=== PATIENT | female | born 1990 | race Caucasian/White ===

== ENCOUNTER 2019-07-06 10:52 | Outpatient (CLI) | payer OTHER, SELFPAY ==
--- NOTE | ~2019-07-06 | US_ITS ---
EXAMINATION: US OB /maternal detail DATE: 07/06/2019 12:25 INDICATION: Second trimester anatomic survey, follow-up subchorionic hematoma TECHNIQUE: Real-time ultrasound of the pelvis was performed. COMPARISON: 06/03/2019 FINDINGS: There is a single living fetus in variable presentation. The placenta is anterior. heart rate i s 159 beats per minute (bpm). cardiac activity and movement are noted. The amniotic flui d index is subjectively normal. A 2.1 x 2.4 x 1.1 cm hypoechoic area is again seen in the placenta wh ich is slightly decreased in size since the prior examination. The following anatomy was identified as normal: 4 chamber heart 3 vessel cord cord insertion kidneys urinary bladder stomach spine diaphragm ventricles cisterna magna cerebellum The following biometric data were obtained: Biparietal diameter (BPD): 4.7 cm; head circumference (HC): 16.9 cm; abdominal circumference (AC): 15 .2 cm; femur length (FL): 2.9 cm. These measurements are concordant. Estimated weight is 311 g +/- 46 g, which correlates with the 39th percentile when 11/24/2019 is used as estimated date of delivery. As single measurements, these parameters are each equal to the following estimated gestational ages w ith ranges of +/- 2 standard deviations: BPD: 20 weeks 1 days +/- 1 weeks 5 days. HC: 19 weeks 4 days +/- 1 weeks 3 days. AC: 20 weeks 3 days +/- 2 weeks 0 days. FL: 18 weeks 6 days +/- 1 weeks 6 days. estimated gestational age based solely on measurements from this exam is 19 weeks 5 days +/- 1 weeks 3 days. IMPRESSION: 1. Single living fetus in variable presentation. 2. Estimated weight is 311 g +/- 46 g, which correlates with the 39th percentile when 11/24/2019 is used as estimated date of delivery. 3. Small hypoechoic area of the placenta with decrease in size, possibly small hemorrhage. Reviewed, dictated and finalized at location A. E VISITOR IMPRESSION: 1. Single living fetus in variable presentation. 2. Estimated weight is 311 g +/- 46 g, which correlates with the 39th per centile when 11/24/2019 is used as estimated date of delivery. 3. Small hypoechoic area of the placenta with decrease in size, possibly small hemorrhage.
== END 2019-07-06 10:53 | disposition home or self-care (01) ==
LOC: ANHIMG 10:54
PROVIDERS: Visit Provider Obstetrics & Gynecology
DX: Z36.9 Encounter for antenatal screening, unspecified (principal); Z3A.19 19 weeks gestation of pregnancy
CPT/HCPCS: 76805

== ENCOUNTER 2019-07-24 07:52 | Outpatient (CLI) | payer OTHER, SELFPAY ==
--- NOTE | ~2019-07-24 | US_ITS ---
EXAMINATION: US OB follow up DATE: 07/24/2019 08:48 INDICATION: Follow-up subchorionic hematoma. TECHNIQUE: Real-time transabdominal obstetric ultrasound. FINDINGS: Comparison to multiple prior studies sequentially, with oldest reviewed study dated 2018. There is a single living fetus in vertex presentation. The placenta is anterior without placenta pre via. cardiac activity and movement is noted with a heart rate of 155 beats per minute. T he amniotic fluid volume is subjectively normal. Persistent small subchorionic hemorrhage measuring 1 .8 x 1.3 x 1.2 cm. The following biometric data were obtained: BPD: 55mm corresponds to gestational age 22 weeks 5 days. Head circumference: 203mm corresponds to gestational age 22 weeks 3 days. Abdominal circumference: 186mm corresponds to gestational age 23 weeks 3 days. Femur length: 35mm corresponds to gestational age 21 weeks 1 days. Estimated weight: 500grams +/- 75grams.] IMPRESSION: 1. Single living intrauterine fetus in vertex presentation with an estimated gestational age of 22 w eeks 3 days by inititial ultrasound. Appropriate interval growth. 2. Normal placenta. 3: Persistent small subchorionic hemorrhage. Reviewed, dictated and finalized at location B. H PROFESSIONAL [employer]THLETES IMPRESSION: 1. Single living intrauterine fetus in vertex presentation with an estimated g estational age of 22 weeks 3 days by inititial ultrasound. Appropriate interva l growth. 2. Normal placenta. 3: Persistent small subchorionic hemorrhage.
== END 2019-07-24 07:53 | disposition home or self-care (01) ==
LOC: ANHIMG 07:53
PROVIDERS: Visit Provider Obstetrics & Gynecology
DX: O36.8920 Maternal care for other specified fetal problems, second trimester, not applicable or unspecified (principal); Z3A.00 Weeks of gestation of pregnancy not specified
CPT/HCPCS: 76816

== ENCOUNTER 2019-08-18 08:38 | Outpatient (CLI) | payer OTHER, SELFPAY ==
--- NOTE | ~2019-08-18 | US_ITS ---
EXAMINATION: US OB follow up DATE: 08/18/2019 09:05 INDICATION: Subchorionic hematoma follow-up, second trimester TECHNIQUE: Real-time ultrasound of the pelvis was performed. The interpreting radiologist was not pre sent for the study. COMPARISON: 07/24/2019 FINDINGS: There is a single living fetus in vertex presentation. No persistent subchorionic hematoma is identified. The placenta is anterior. cardiac activity and movement are noted. h eart rate is 157 beats per minute (bpm). The amniotic fluid index is subjectively normal. The following biometric data were obtained: Biparietal diameter (BPD): 6.8 cm; head circumference (HC): 24.4 cm; abdominal circumference (AC): 22 .9 cm; femur length (FL): 4.6 cm. The femoral length to biparietal diameter ratio is greater than two standard deviations below the isidoro n. These measurements are otherwise concordant. Estimated weight is 958 g +/- 143 g, which correlates with the 65th percentile when 11/24/2019 is used as estimated date of delivery. As single measurements, these parameters are each equal to the following estimated gestational ages w ith ranges of +/- 2 standard deviations: BPD: 27 weeks 4 days +/- 2 weeks 1 days. HC: 26 weeks 4 days +/- 2 weeks 0 days. AC: 27 weeks 2 days +/- 2 weeks 1 days. FL: 25 weeks 3 days +/- 2 weeks 1 days. estimated gestational age based solely on measurements from this exam is 26 weeks 5 days +/- 1 weeks 6 days. IMPRESSION: 1. Single living fetus in vertex presentation. 2. No persistent subchorionic hematoma identified. 3. Femoral length to biparietal diameter ratio greater than two standard deviations below the mean. 4. Estimated weight is 958 g +/- 143 g, which correlates with the 65th percentile when 11/24/2019 is used as estimated date of delivery. Reviewed, dictated and finalized at location B. IMPRESSION: 1. Single living fetus in vertex presentation. 2. No persistent subchorionic hematoma identified. 3. Femoral length to biparietal diameter ratio greater than two standard deviat ions below the mean. 4. Estimated weight is 958 g +/- 143 g, which correlates with the 65th rcentile when 11/24/2019 is used as estimated date of delivery.
== END 2019-08-18 08:39 | disposition home or self-care (01) ==
LOC: ANHIMG 08:42
PROVIDERS: PCP Family Medicine; Visit Provider Obstetrics & Gynecology
DX: O36.8920 Maternal care for other specified fetal problems, second trimester, not applicable or unspecified (principal); Z3A.26 26 weeks gestation of pregnancy
CPT/HCPCS: 76816

== ENCOUNTER 2019-09-18 13:45 | Outpatient (CLI) | payer OTHER, SELFPAY ==
--- NOTE | ~2019-09-18 | US_ITS ---
EXAMINATION: US OB follow up DATE: 09/18/2019 14:40 INDICATION: Size greater than dates. Third trimester. TECHNIQUE: Real-time ultrasound of the pelvis was performed. COMPARISON: Ultrasound 08/18/2019, 04/03/2019 FINDINGS: There is a single living fetus in transverse lie. The placenta is anterior. heart rate is 150 beats per minute (bpm). The amniotic fluid volume is subjectively normal. The following biometric data were obtained: Biparietal diameter (BPD): 7.9 cm; head circumference (HC): 28.6 cm; abdominal circumference (AC): 26 .2 cm; femur length (FL): 5.8 cm. These measurements are concordant. Estimated weight is 1599 g +/- 240 g, which correlates with 42nd percentile when 11/24/19 is used as estimated date of delivery. As single measurements, these parameters are each equal to the following estimated gestational ages: BPD: 31 weeks 6 days. HC: 31 weeks 3 days. AC: 30 weeks 2 days. FL: 30 weeks 3 days. estimated gestational age based solely on measurements from this exam is 31 weeks 0 days +/- 2 weeks 1 days. IMPRESSION: 1. Single living fetus in transverse lie. 2. Estimated weight is 1599 g +/- 240 g, which correlates with 42nd percentile when 11/24/19 is used as estimated date of delivery. This date was set by ultrasound on 04/03/19. Reviewed, dictated and finalized at location A. IMPRESSION: 1. Single living fetus in transverse lie. 2. Estimated weight is 1599 g +/- 240 g, which correlates with 42nd perc entile when 11/24/19 is used as estimated date of delivery. This date was set by ultrasound on 04/03/19.
== END 2019-09-18 13:46 | disposition home or self-care (01) ==
PROVIDERS: Visit Provider Nurse Practitioner
DX: O36.63X0 Maternal care for excessive fetal growth, third trimester, not applicable or unspecified (principal)
CPT/HCPCS: 76816

== ENCOUNTER 2019-11-06 13:23 | Inpatient (IN) | payer OTHER, SELFPAY ==
[2019-11-06] VITALS (9 sets, daily range): BP systolic 116–141; BP diastolic 77–93; PULSE 67–124; TEMP 37.6; BMI 30.2
[2019-11-06 18:05] LABS: Basophils Absolute Auto 0.1 K/mm3 (0.0-0.1); Basophils Percent Auto 0.4 % (0.2-1.2); Eosinophils Absolute Auto 0.1 K/mm3 (0-0.3); Eosinophils Percent Auto 0.3 % (0-4.4); Hematocrit 40.4 % (37.0-47.0); Immature Granulocyte Percent A 0.6 % (0-0.5); Lymphocytes Absolute Auto 1.98 K/mm3 (0.9-3.2); Lymphocytes Percent Auto 12.7 % (18.3-44.2); Mean Corpuscular HGB Conc 34.7 g/dl (32-36); Mean Corpuscular Hemoglobin 30.2 pg (26-34); Mean Corpuscular Volume 87.1 fl (80-100); Mean Platelet Volume 10.8 fl (7.4-10.4); Monocytes Absolute Auto 0.8 K/mm3 (0.1-0.6); Monocytes Percent Auto 5.4 % (2.6-8.5); Neutrophils Absolute Auto 12.5 K/mm3 (1.3-6.7); Neutrophils Percent Auto 80.6 % (45.5-73.1); Platelet Count Result 203 k/mm3 (150-375); Red Blood Count 4.64 M/mm3 (4.2-5.4); White Blood Count 15.6 K/mm3 (4.5-10.0)
--- NOTE | 2019-11-06 18:12 | LDADM ---
This patient, Dina Real, was admitted to Labor/Delivery/Recovery 107 on 11/06/19 at 13:23. Plans for labor, pain management and were discussed with patient. Patient/family oriented to hospital policies and general routines including ID bracelet, bed and alarms, visiting hours, pain management, procedures, bathroom and other care routines, personal items, smoking policy, room service/diet and guest tray routines, infant security routines, and visiting hours. Patient/Family are encouraged to report perceived risks to care and to ask questions if they do not understand what they are told or what they should do. See OBIX for further documentation.
[2019-11-06 18:17] LABS: Alanine Aminotransferase 21 U/L (4-35); Albumin Level 3.9 g/dL (3.5-5.1); Alkaline Phosphatase 185 U/L (38-126); Aspartate Amino Transferase 33 U/L (14-36); Bilirubin,Total 0.5 mg/dL (0.2-1.3); Blood Urea Nitrogen 11 mg/dL (7-17); Calcium 8.9 mg/dL (8.4-10.2); Carbon Dioxide 21 mmol/L (22-30); Chloride 105 mmol/L (98-107); Estimated Glomerular Filt Rate > 60; Glucose 85 mg/dL (65-105); Potassium 3.8 mmol/L (3.4-5.0); Sodium 133 mmol/L (137-145)
[2019-11-06 18:18] LABS: Uric Acid 3.9 mg/dL (2.5-7.5)
[2019-11-06] MEDS: OXYTOCIN 30 UNITS/NS 500 ML 30 UNITS/500 ML BAG 999 UNITS IV CONT (22:50)
--- NOTE | 2019-11-06 23:07 | PM.OBDSVD ---
DS: Admitting Diagnosis Admitting Diagnosis Admitting Diagnosis: OB - DS: Summary OB Procedures : Ultrasound OB Procedures Intrapartum: Spontaneous Vag Delivery OB Procedures: : None Time Spent with Patient Time attestation: Total time spent providing and/or coordinating discharge services: DS: Data Data Completed and Pending Labs on day of discharge: Labs from last 24 hours 11/06/19 11/06/19 11/06/19 17:59 17:59 17:59 WBC RBC Hgb Hct MCV MCH MCHC RDW Plt Count MPV Immature Gran % (Auto) Neut % (Auto) Lymph % (Auto) [place] % (Auto) Eos % (Auto) Baso % (Auto) Lymph # (Auto) [place] # (Auto) Eos # (Auto) Baso # (Auto) Abs Immat Gran (auto) Absolute Neuts (auto) Absolute Nucleated RBC Nucleated RBC % Sodium 133 L Potassium 3.8 Chloride 105 Carbon Dioxide 21 L BUN 11 Creatinine 0.70 Estim Creat Clear Calc Not Reportable Estimated GFR > 60 Glucose 85 Uric Acid Calcium 8.9 Total Bilirubin 0.5 AST 33 ALT 21 Alkaline Phosphatase 185 H Total Protein 7.0 Albumin 3.9 RPR Pending Blood Type O Positive Antibody Screen Negative 11/06/19 11/06/19 17:59 17:59 WBC 15.6 H RBC 4.64 Hgb 14.0 Hct 40.4 MCV 87.1 MCH 30.2 MCHC 34.7 RDW 13.0 Plt Count 203 MPV 10.8 H Immature Gran % (Auto) 0.6 H Neut % (Auto) 80.6 H Lymph % (Auto) 12.7 L [place] % (Auto) 5.4 Eos % (Auto) 0.3 Baso % (Auto) 0.4 Lymph # (Auto) 1.98 [place] # (Auto) 0.8 H Eos # (Auto) 0.1 Baso # (Auto) 0.1 Abs Immat Gran (auto) 0.10 H Absolute Neuts (auto) 12.5 H Absolute Nucleated RBC 0.0 Nucleated RBC % 0.0 Sodium Potassium Chloride Carbon Dioxide BUN Creatinine Estim Creat Clear Calc Estimated GFR Glucose Uric Acid 3.9 Calcium Total Bilirubin AST ALT Alkaline Phosphatase Total Protein Albumin RPR Blood Type Antibody Screen Discharge Plan Discharge Attending physician on discharge: Desean Toth Discharging Clinician: Desean Toth Patient Disposition: Home, Self-Care Activity: may shower Diet: regular Discharge Instructions: Education: Mom and Baby Guide Given to: Mother Follow-Up: Call your delivering provider's office for an appointment to be seen in: 6 Weeks Mom and baby should come to the [facility] for the follow-up appointment. Appointment Date/Time: November 09, 2019 at 11:00 am What to expect at your follow-up visit: Blood Pressure Check Physical Assessment Call [phone] if you are unable to keep your appointment time. BREAST CARE: 1. Wear a snug supportive bra. 2. For engorgement discomfort: Breast Feeding: A. Apply warm moist washcloths B. Express milk as needed to relieve engorgement C. Wear loose clothing Bottle Feeding: A. May apply ice packs 3. For sore nipples: A. Identify correct latch-on B. Apply warm moist washcloths before and after nursing C. Air dry nipples after nursing D. May apply Lansinoh cream to nipples EPISIOTOMY/PERINEAL CARE: 1. Until bleeding stops, use your stefan bottle after urinating 2. Change your pad frequently throughout the day 3. You may take sitz baths several times a day (fill your bathtub with warm water and soak for 20 minutes.) Do NOT bathe in the water 4. No tub baths until seen by your physician - You may shower ACTIVITY: 1. Rest as much as possible. 2. Do not exercise or lift anything heavier than your baby (such as laundry or other children.) 3. Avoid stairs or driving as much as possible. 4. Do not put anything into the vagina. No douching, tampons, or sexual activity until seen by physician. NOTIFY PHYSICIAN IF YOU HAVE ANY QUESTIONS OR IF ANY OF THE FOLLOWING SYMPTOMS OCCUR: 1. I
--- NOTE | 2019-11-06 23:07 | WPDOBADMIT ---
Obstetrics - Admit Note Admission Note: Complete and pushing. record reviewed. No pertinent additions to the history and/or any subsequent changes in the physical findings that are not consistent with the expected course of the were found. Additions to the history and/or subsequent changes in the physical findings follow. None.
--- NOTE | 2019-11-06 23:08 | P.PCNOB_ITS ---
OB - Delivery Note Procedure Delivery date: 11/06/19 Procedure: Intrapartal events: None Induction method: none Delivery monitor: external FHT and external uterine Route of delivery: Laceration description: Vaginal - 2nd Degree Delivery repair: vicryl Specimen: Yes Estimated blood loss (mL): 300 Anesthesia type: Local Disposition: floor [place] Baby Date of : 11/06/19 Time of : 22:11 Weeks of gestation at delivery: 39 gender: Male Weight (pounds): 5 Weight (ounces): 15 presentation: vertex Placenta delivery description: Manual Removal cord vessel description: 3 Vessels score one minute: 8 score five minutes: 8 Narrative: Short umbilical cord. Placenta manually removed after 34 minutes of retraction bedside ultrasound done after removal stripe visualized Cytotec 800 mcg given rectal.
[2019-11-06] MEDS: OXYTOCIN 30 UNITS/NS 500 ML 30 UNITS/500 ML BAG 125 UNITS IV CONT (23:19)
[2019-11-06] MEDS: ceFAZolin 2 GM/D5W 50 ML 2 GM/50 ML BAG IVPB (23:55)
[2019-11-07] VITALS (8 sets, daily range): BP systolic 108–130; BP diastolic 68–82; PULSE 53–128; RESP 16–18; TEMP 36.6–37.1; O2SAT 96–99
[2019-11-07] MEDS: WITCH HAZEL 40 PADS 1 PAD TOPICAL ×2 (01:16→16:18)
[2019-11-07] MEDS: BENZOCAINE 20% AER SPR (*SP) 56 GM CAN 1 SPRAY TOPICAL ×2 (01:17→16:18)
--- NOTE | 2019-11-07 01:58 | PC.NURSE ---
This patient, Dina Real, was received from Labor& Delivery on 11/07/19 at 0154. Personal belongings list checked and signed. Patient/family oriented to unit policies and routines
[2019-11-07 05:12] LABS: Hemoglobin 11.8 g/dL (12.0-15.0)
--- NOTE | 2019-11-07 07:51 | P.PNOB_ITS ---
OB - PN: Subj Subjective Date/time seen: 11/07/19 07:51 Patient comments: no complaints baby status: doing well OB - PN: Obj Data Labs CBC & Chem 7: 11/07/19 03:44 11/06/19 17:59 Labs: Laboratory Results - last 24 hr 11/06/19 11/06/19 11/06/19 17:59 17:59 17:59 WBC 15.6 H RBC 4.64 Hgb 14.0 Hct 40.4 MCV 87.1 MCH 30.2 MCHC 34.7 RDW 13.0 Plt Count 203 MPV 10.8 H Immature Gran % (Auto) 0.6 H Neut % (Auto) 80.6 H Lymph % (Auto) 12.7 L [place] % (Auto) 5.4 Eos % (Auto) 0.3 Baso % (Auto) 0.4 Lymph # (Auto) 1.98 [place] # (Auto) 0.8 H Eos # (Auto) 0.1 Baso # (Auto) 0.1 Abs Immat Gran (auto) 0.10 H Absolute Neuts (auto) 12.5 H Absolute Nucleated RBC 0.0 Nucleated RBC % 0.0 Sodium Potassium Chloride Carbon Dioxide BUN Creatinine Estim Creat Clear Calc Estimated GFR Glucose Uric Acid 3.9 Calcium Total Bilirubin AST ALT Alkaline Phosphatase Total Protein Albumin Blood Type O Positive Antibody Screen Negative 11/06/19 11/07/19 17:59 03:44 WBC RBC Hgb 11.8 L Hct 34.0 L MCV MCH MCHC RDW Plt Count MPV Immature Gran % (Auto) Neut % (Auto) Lymph % (Auto) [place] % (Auto) Eos % (Auto) Baso % (Auto) Lymph # (Auto) [place] # (Auto) Eos # (Auto) Baso # (Auto) Abs Immat Gran (auto) Absolute Neuts (auto) Absolute Nucleated RBC Nucleated RBC % Sodium 133 L Potassium 3.8 Chloride 105 Carbon Dioxide 21 L BUN 11 Creatinine 0.70 Estim Creat Clear Calc Not Reportable Estimated GFR > 60 Glucose 85 Uric Acid Calcium 8.9 Total Bilirubin 0.5 AST 33 ALT 21 Alkaline Phosphatase 185 H Total Protein 7.0 Albumin 3.9 Blood Type Antibody Screen OB - PN A/P Plan day: 1 Plan: routine care Time Spent With Patient Time: Total time spent is greater than 50% in coordination of care (as documented) at patient's floor/unit and/or counseling patient: Exam : Bimanual exam- vagina & uterus: other (Uterus firm, nt @U)
[2019-11-07] MEDS: IBUPROFEN 600 MG TABLET PO ×2 (08:14→16:18)
[2019-11-07] MEDS: MULTIVIT/MIN/PREN/FOL AC/IRON TABLET 1 TAB PO (08:14)
[2019-11-07] MEDS: DOCUSATE SODIUM 100 MG CAPSULE PO ×2 (08:14→16:19)
[2019-11-07] MEDS: LANOLIN (LANSINOH) 7.5 GM CREAM 1 APPLIC TOPICAL (08:15)
[2019-11-07 08:54] LABS: Rapid Plasma Reagin Non-Reactive (NonReactive)
--- NOTE | 2019-11-07 11:00 | PC.NURSE ---
Consulted with patient, mother reports infant has been sleepy. will make eager attempts to latch with a few flutter sucks with long pausing and fall asleep this feeding. Infant has latched and eagerly fed a few feedings. Mother has pumped and given EBM once since . Discussed and the near term , with possible sleepiness, inconsistent feeding patterns and short durations. Infant was circumcised earlier this a.m. Mother has initiated pumping and has EBM available. Reviewed infant feeding cues, frequencies, duration of feedings, feeding elimination flow sheet, and signs of adequate intake. Demonstrated stimulation techniques to wake infant for feeding. Assisted with to breast. Reviewed positioning/alignment in cross cradle, holding breast in U hold and guided asymmetrical latch on. Discussed rational for each. Infant was able to latch correctly. Infant eagerly latched with a short burst of suckling followed with long pausing. is awake and licking with attempts to organize and suck. Several attempts made in 10-15 minutes, repeating above. Reviewed signs of a correct latch, effective nursing and suck swallow ratio. Infant was able to maintain latch with no suckling and no discomfort to mother. Nipple care reviewed. Parents report this has been 's feeding pattern since . Mother states he may have had a few minutes of suckling at some feedings. Parents will supplement the 10mls EBM for this feeding.
[2019-11-07] MEDS: ACETAMINOPHEN 325 MG TABLET 650 MG PO ×2 (12:24→22:39)
--- NOTE | 2019-11-07 14:00 | PC.NURSE ---
Mother called out for assist with feeding. Demonstrated stimulation techniques to wake for feeding. Assisted with to breast. Reviewed positioning/alignment, holding breast and asymmetrical latch on. Infant was sleepy and made not effort to latch. Suggested skin to skin for 30 min., call out if infant rooting before.
--- NOTE | 2019-11-07 14:35 | PC.NURSE ---
Assisted with infant to breast. Reviewed positioning/alignment in cross cradle, holding breast and asymmetrical latch on. Infant was able to latch correctly. Infant nursed would make eager attempts to latch with a few weak suckles long pausing and would fall asleep. Mother repeated to latch several times within the 10 minutes of observation. Mother will supplement EBM and pump.
--- NOTE | 2019-11-07 15:00 | PC.NURSE ---
Assisted mother with her breastpump from home. Instructions given on breast pump care and usage, pumping schedule, nipple care, and collection and storage of breast milk. Assessed patient for correct flange size, placement and draw. Patient verbalizes and demonstrates understanding of instructions.
[2019-11-08] MEDS: DOCUSATE SODIUM 100 MG CAPSULE PO (08:09)
[2019-11-08] MEDS: IBUPROFEN 600 MG TABLET PO (08:09)
[2019-11-08] MEDS: MULTIVIT/MIN/PREN/FOL AC/IRON TABLET 1 TAB PO (08:09)
[2019-11-08 08:15] VITALS: PULSE 63; RESP 16; O2SAT 98
[2019-11-08 08:17] VITALS: BP 119/53; PULSE 56; RESP 18; TEMP 36.6
--- NOTE | 2019-11-08 08:21 | PC.NURSE ---
Patient viewed the discharge video Mother & Baby Care, The First Two Weeks . Patient was given the opportunity and encouraged to ask questions. Patient verbalized understanding of information shared and has been given the mother/baby guide for home reference.
--- NOTE | 2019-11-08 09:10 | PC.NURSE ---
Mother is able to independently latch with appropriate positioning/alignment. She denies any nipple discomfort, is feeding as required and waking infant to feed if needed. Infant is inconsistent with latching and nursing. Mother will supplement and pump each feeding/attempt. has had a few effective feedings since . is more awake and making good attempts with latching each feeding, nursing for short bursts. Discussed signs is ready for increased intake and reviewed signs when infant is ready to discontinue supplementation. Advised mother to continue to supplement until seen by her ICP. Mother is feeding as required and waking to feed if needed. is currently meeting outcomes for weight, output, jaundice and feeding frequencies. Mother states she feels confident to continue effective at home. Reviewed transition to breast milk, signs of adequate intake, and engorgement/relief. Instructed to call ICP if intake/output less than required. Reviewed regular medications mother is taking. Information provided per Estela. Reviewed community resources on the [facility] website and in the Mom/Baby guide. Information on outpatient services provided. Mother has no further questions at this time.
--- NOTE | 2019-11-08 13:17 | PC.NURSE ---
Self care and infant care discharge instructions given including follow up visit date and time. Pt. verbalized understanding. No questions or concerns voiced. Very pleasant and cooperative. FOB at side.
[2019-11-09 12:02] VITALS: BP 119/69; PULSE 67; RESP 22; TEMP 37.3
== END 2019-11-08 14:30 | disposition home or self-care (01) | DRG 807 ==
LOC: ANHLDR 18:49 → ANHOB2 11-07 02:06
PROVIDERS: Admitting Provider Obstetrics & Gynecology; Visit Provider Obstetrics & Gynecology
DX: O36.8330 Maternal care for abnormalities of the fetal heart rate or rhythm, third trimester, not applicable or unspecified (principal); Z37.0 Single live birth; Z3A.37 37 weeks gestation of pregnancy; O70.1 Second degree perineal laceration during delivery
CPT/HCPCS: 36415; 80053; 84550; 85014; 85018; 85025; 86592; 86850; 86900; 86901; 88307; A9270; J0690; J2590

== ENCOUNTER → 2021-06-10 13:21 | Outpatient (REF) | payer OTHER, SELFPAY | LOC: ANHLAB 13:21 | PROVIDERS: Visit Provider Nurse Practitioner | DX: R22.9 Localized swelling, mass and lump, unspecified (principal) | CPT/HCPCS: 88305 ==

== ENCOUNTER 2022-04-15 15:53 | Outpatient (CLI) | payer OTHER, SELFPAY | END 2022-04-15 15:54 | disposition home or self-care (01) | PROVIDERS: Visit Provider Obstetrics & Gynecology | DX: O20.0 Threatened abortion (principal) | CPT/HCPCS: 36415; 84702 ==

== ENCOUNTER 2022-04-17 10:54 | Outpatient (CLI) | payer OTHER, SELFPAY | END 2022-04-17 10:55 | disposition home or self-care (01) | LOC: ANHLAB 10:56 | PROVIDERS: Visit Provider Obstetrics & Gynecology | DX: O20.0 Threatened abortion (principal) | CPT/HCPCS: 36415; 84702 ==

== ENCOUNTER 2022-06-25 09:48 | Outpatient (CLI) | payer OTHER, SELFPAY ==
--- NOTE | ~2022-06-25 | US_ITS ---
Duplex Sonography of the left extremity: Indication: Pain Findings: Sagittal and transverse B-mode images as well as color-flow imaging were performed on the l eft femoral and popliteal veins. B-mode examination was done without and with compression in the tra nsverse plane. There is good visualization of the common femoral, proximal profunda femoral, superfi cial femoral, greater saphenous, and popliteal veins. Normal flow was seen on color-flow imaging. No rmal compressibility was demonstrated. Left posterior tibial and peroneal veins are also patent. Impression: No evidence of deep vein thrombosis involving the left lower extremity. Reviewed, dictated and finalized at location M. G[employer] SOFTWARE Impression: No evidence of deep vein thrombosis involving the left lower extremity.
== END 2022-06-25 09:49 | disposition home or self-care (01) ==
PROVIDERS: PCP Family Medicine; Visit Provider Obstetrics & Gynecology
DX: Z34.90 Encounter for supervision of normal pregnancy, unspecified, unspecified trimester (principal); Z3A.00 Weeks of gestation of pregnancy not specified; M79.605 Pain in left leg
CPT/HCPCS: 93971

== ENCOUNTER 2022-11-18 21:00 | Inpatient (IN) | payer OTHER, SELFPAY ==
[2022-11-18] VITALS (34 sets, daily range): BP systolic 125–165; BP diastolic 76–111; PULSE 25–181; RESP 16–20; TEMP 36.6; O2SAT 67–100; BMI 32.2
[2022-11-18 21:20] LABS: Basophils Absolute Auto 0.1 K/mm3 (0.0-0.1); Basophils Percent Auto 0.6 % (0.2-1.2); Eosinophils Percent Auto 0.3 % (0-4.4); Hematocrit 39.1 % (37.0-47.0); Hemoglobin 13.7 g/dL (12.0-15.0); Immature Granulocyte Absolute 0.08 K/mm3 (0.00-0.031); Immature Granulocyte Percent A 0.7 % (0-0.5); Lymphocytes Absolute Auto 3.75 K/mm3 (0.9-3.2); Mean Corpuscular Hemoglobin 30.2 pg (26-34); Mean Corpuscular Volume 86.1 fl (80-100); Mean Platelet Volume 12.4 fl (7.4-10.4); Monocytes Absolute Auto 0.8 K/mm3 (0.1-0.6); Monocytes Percent Auto 6.4 % (2.6-8.5); Neutrophils Absolute Auto 7.4 K/mm3 (1.3-6.7); Platelet Count Result 165 k/mm3 (150-375); Red Blood Count 4.54 M/mm3 (4.2-5.4); Red Cell Distribution Width 12.4 % (11.5-14.5); White Blood Count 12.1 K/mm3 (4.5-10.0)
[2022-11-18] MEDS: LACTATED RINGERS 1,000 ML 125 ML IV CONT (21:20)
--- NOTE | 2022-11-18 21:24 | LDADM ---
This patient, Dina Real, was admitted to Labor/Delivery/Recovery 106 on 11/18/22 at 21:00. Plans for labor, pain management and were discussed with patient. Patient/family oriented to hospital policies and general routines including ID bracelet, bed and alarms, visiting hours, pain management, procedures, bathroom and other care routines, personal items, smoking policy, room service/diet and guest tray routines, infant security routines, and visiting hours. Patient/Family are encouraged to report perceived risks to care and to ask questions if they do not understand what they are told or what they should do. See OBIX for further documentation.
[2022-11-18] MEDS: AMPICILLIN 2 GM/NS 100 ML 2 GM/100 ML BAG IVPB (21:25)
--- NOTE | 2022-11-18 21:37 | WPDANESEPP ---
Anes - Eval Pre Procedure Procedure: labor epidural Date/Time: 11/18/22 21:37 Surgeon: juan pablo Preop Diagnosis: pain during labor Pre Op Diagnosis: Labor Patient Data Age: 32 Gender: F Height: 1.57 m Weight: Last Vital Signs Pulse 91 11/18/22 21:30 BP 165/100 H 11/18/22 21:30 O2 Del Method Room Air 11/18/22 21:21 Allergies Allergy/AdvReac Type Severity Reaction Status Date / Time No Known Allergies Allergy Verified 09/10/21 09:12 Home Medications Medication Instructions Recorded Confirmed Type prenat.vits,harley,ccz-toau-vkdes 1 tablet PO DAILY 09/10/21 11/18/22 History famotidine 20 mg tablet (Pepcid) 20 mg PO HS 11/12/22 11/12/22 History Laboratory Tests 11/18/22 21:13 WBC 12.1 H K/mm3 (4.5-10.0) RBC 4.54 M/mm3 (4.2-5.4) Hgb 13.7 g/dL (12.0-15.0) Hct 39.1 % (37.0-47.0) MCV 86.1 fl (80-100) MCH 30.2 pg (26-34) MCHC 35.0 g/dl (32-36) RDW 12.4 % (11.5-14.5) Plt Count 165 k/mm3 (150-375) MPV 12.4 H fl (7.4-10.4) Immature Gran % (Auto) 0.7 H % (0-0.5) Neut % (Auto) 61.0 % (45.5-73.1) Lymph % (Auto) 31.0 % (18.3-44.2) [place] % (Auto) 6.4 % (2.6-8.5) Eos % (Auto) 0.3 % (0-4.4) Baso % (Auto) 0.6 % (0.2-1.2) Lymph # (Auto) 3.75 H K/mm3 (0.9-3.2) [place] # (Auto) 0.8 H K/mm3 (0.1-0.6) Eos # (Auto) 0.0 K/mm3 (0-0.3) Baso # (Auto) 0.1 K/mm3 (0.0-0.1) Abs Immat Gran (auto) 0.08 H K/mm3 (0.00-0.031) Absolute Neuts (auto) 7.4 H K/mm3 (1.3-6.7) Absolute Nucleated RBC 0.0 K/mm3 (0.0-0.012) Nucleated RBC % 0.0 % (0.0-0.2) RPR Pending Patient hx anesthesia problems: none Family hx anesthesia problems: none Results Review: All pre-operative results and documents have been reviewed as part of the pre-operative evaluation. [facility] Past Medical History Medical History (Updated 09/10/21 @ 09:30 by Arlet Dhillon MD) History of vaginal delivery 2019 Surgical History Surgical History (Updated 09/10/21 @ 09:15 by Kassidy Rudolph MA) History of umbilical hernia repair 07/2020 [place] teeth removed Family History Family History (Updated 11/12/22 @ 12:27 by Darlene Koch RN) Mother Depression Hypertension Social History Social History (Updated 09/10/21 @ 09:16 by Kassidy Rudolph MA) Smoking status: Never smoker Alcohol intake: never Substance use: never Lack of Transportation: No Lack of Food: Never True Current Housing: I Have Housing Concerned About Future Housing: No Difficulty Paying Gas/Electric Bills: No Difficulty Paying for Meds: No Currently Unemployed: No Education: Bachelor's Degree Difficulty w/ Childcare or Family Care: No Living arrangements: with family Gender identity (if verbalized by the patient): Female Spiritual care concerns: No Exam Day of Procedure 11/18/22 21:37
[2022-11-18] MEDS: OXYTOCIN 30 UNITS/NS 500 ML 30 UNITS/500 ML BAG 999 UNITS IV CONT (22:16)
--- NOTE | 2022-11-18 22:27 | WPDOBADMIT ---
Obstetrics - Admit Note Admission Note: record reviewed. Additions to the history and/or subsequent changes in the physical findings follow. 32 y/o at 36 5/7 weeks here after a gush of fluid at 2014 tonight, followed by intense contractions. GBS unknown. History of manual extraction of placenta. EFW two weeks ago 7#9oz. She has received a first dose of ampicillin IV and an epidural has been placed. She is getting some relief from the pain. AVSS NST reactive TOCO: contractions every 2-3 min ABD soft, nontender, gravid, vertex EXT nontender Cervix 8cm on admission per RN. Completely dilated and +2 station at time of my arrival. Gross ROM evident. A: IUP at 36 5/7 weeks with SROM. P: Anticipate . Ampicillin for GBS unknown.
--- NOTE | 2022-11-18 22:36 | PM.OBPRVD ---
OB - Delivery Note Procedure Delivery date: 11/18/22 Procedure: Induction method: None Delivery monitor: External FHT and External Uterine Route of delivery: Laceration Description: None Specimen: Yes (cord blood) Quantitative Blood Loss (ml): 330 Anesthesia type: Epidural Disposition: PACU Complications: Shoulder dystocia Narrative: 32 y/o at 36 5/7 weeks gestation who presented to the hospital after a gush of fluid. SROM was confirmed. She was given ampicillin IV for GBS unknown status in the . She received an epidural for pain control. Her labor progressed quickly and her cervix dilated completely. She pushed with good effort and delivered the infant's head to the perineum. A shoulder dystocia was encountered. She was instructed to stop pushing. Fundal pressure was strictly avoided, as was traction on the head. McRobert's maneuver was employed. The posterior (left) shoulder was able to be grasped and rotated in a counterclockwise fashion. The anterior shoulder easily delivered, followed by the body. The nose and mouth were bulb suctioned. After a delay, the cord was clamped and cut. The infant was handed off the field. Cord blood was collected. The placenta delivered spontaneously and was grossly normal in appearance. The usual 3 vessel cord was noted. There were no lacerations. Needle and instrument counts were correct. The patient was taken to recovery room in stable condition. The infant went to the nursery in stable condition. I was present and scrubbed for the entire delivery. Baby Date of : 11/18/22 Time of : 22:13 Weeks of gestation at delivery: 36 Infant gender: Male Weight (pounds): 7 Weight (ounces): 14 presentation: vertex position: Left Occiput Anterior Placenta delivery description: Spontaneous and Normal Configuration Cord Vessel Description: 3 Vessels and Delayed Cord Clamping score one minute: 8 score five minutes: 9
--- NOTE | 2022-11-18 22:42 | PM.OBDSVD ---
DS: Admitting Diagnosis Discharge Date 11/20/2022 <Kamlesh August MD - Last Filed: 11/20/22 08:39> Admitting Diagnosis IUP at 36 5/7 weeks SROM <Ryan Ortega MD - Last Filed: 11/21/22 10:14> DS: Discharge Diagnosis Discharge Diagnosis (1) (normal spontaneous vaginal delivery): Code(s): O80 - Encounter for full-term uncomplicated delivery <Ryan Ortega MD - Last Filed: 11/21/22 10:14> Status: Acute <Ryan Ortega MD - Last Filed: 11/21/22 10:14> (2) delivery: Code(s): O60.10X0 - labor with delivery, unspecified trimester, not applicable or unspecified <Ryan Ortega MD - Last Filed: 11/21/22 10:14> Status: Acute <Ryan Ortega MD - Last Filed: 11/21/22 10:14> OB - DS: Summary OB Procedures : None <Ryan Ortega MD - Last Filed: 11/21/22 10:14> OB Procedures Intrapartum: Spontaneous Vag Delivery and GBS prophylaxis <Ryan Ortega MD - Last Filed: 11/21/22 10:14> OB Procedures: : None <Ryan Ortega MD - Last Filed: 11/21/22 10:14> Time Spent with Patient Time attestation: Total time spent providing and/or coordinating discharge services: <Ryan Ortega MD - Last Filed: 11/21/22 10:14> DS: Data Data Completed and Pending Labs on day of discharge: Labs from last 24 hours 11/18/22 11/18/22 21:14 21:13 WBC 12.1 H RBC 4.54 Hgb 13.7 Hct 39.1 MCV 86.1 MCH 30.2 MCHC 35.0 RDW 12.4 Plt Count 165 MPV 12.4 H Immature Gran % (Auto) 0.7 H Neut % (Auto) 61.0 Lymph % (Auto) 31.0 [place] % (Auto) 6.4 Eos % (Auto) 0.3 Baso % (Auto) 0.6 Lymph # (Auto) 3.75 H [place] # (Auto) 0.8 H Eos # (Auto) 0.0 Baso # (Auto) 0.1 Abs Immat Gran (auto) 0.08 H Absolute Neuts (auto) 7.4 H Absolute Nucleated RBC 0.0 Nucleated RBC % 0.0 RPR Pending Blood Type O Positive Antibody Screen Pending <Ryan Ortega MD - Last Filed: 11/21/22 10:14> Discharge Plan Discharge Attending physician on discharge: Ryan Ortega <Ryan Ortega MD - Last Filed: 11/21/22 10:14> Ryan Ortega <Kamlesh August MD - Last Filed: 11/20/22 08:39> Discharging Clinician: Ryan Ortega <Ryan Ortega MD - Last Filed: 11/21/22 10:14> Ryan Ortega <Kamlesh August MD - Last Filed: 11/20/22 08:39> Patient Disposition: Home, Self-Care <Ryan Ortega MD - Last Filed: 11/21/22 10:14> Activity: pelvic rest <Ryan Ortega MD - Last Filed: 11/21/22 10:14> pelvic rest <Kamlesh August MD - Last Filed: 11/20/22 08:39> Diet: regular <Ryan Ortega MD - Last Filed: 11/21/22 10:14> regular <Kamlesh August MD - Last Filed: 11/20/22 08:39> Discharge Instructions: Call or return if temperature above 100.4? F, increased abdominal pain, increased vaginal bleeding or any new problems. Education: Mom and Baby Guide Given to: Mother Follow-Up: Call your delivering provider's office for an appointment to be seen in: 6 Weeks Mom [facility] follow-up [facility]. Appointment Date/Time: November 23, 2022 at 11:00 am What to expect at your follow-up visit: Blood Pressure Check Physical Assessment Call [phone] if you are unable to keep your appointment time. BREAST CARE: * Wear a snug supportive bra. * For engorgement discomfort: Breast Feeding: * Apply warm moist washcloths * Express milk as needed to relieve engorgement * Wear loose clothing * For sore nipples: * Identify correct latch-on * Apply warm moist washcloths before and after nursing * Air dry nipples after nursing * May apply Lansinoh cream to nipples ABDOMINAL INCISION: * Allow incision to air dry * Do NOT use lotions
[2022-11-18] MEDS: OXYTOCIN 30 UNITS/NS 500 ML 30 UNITS/500 ML BAG 125 UNITS IV CONT (22:51)
[2022-11-19] VITALS (12 sets, daily range): BP systolic 130–156; BP diastolic 72–96; PULSE 51–66; RESP 16–18; TEMP 36.1–37.2; O2SAT 100
--- NOTE | 2022-11-19 02:02 | PC.NURSE ---
Patient transferred to post room #288 from labor and delivery. Support person present. Oriented to unit, room, information board, rooming in, admission packet and security measures. Patient verbalizes understanding.
[2022-11-19 05:54] LABS: Hematocrit 34.8 % (37.0-47.0); Hemoglobin 12.2 g/dL (12.0-15.0)
[2022-11-19] MEDS: IBUPROFEN 600 MG TABLET PO (07:18)
[2022-11-19] MEDS: DOCUSATE SODIUM 100 MG CAPSULE PO (07:19)
[2022-11-19] MEDS: MULTIVIT/MIN/PREN/FOL AC/IRON TABLET 1 TAB PO (07:19)
--- NOTE | 2022-11-19 07:40 | WPDANLDPN2 ---
Anes-Prog Note L&D Date/Time: 11/19/22 07:40 Comfortable throughout: labor and delivery Neuraxial method: epidural Epidural/Spinal procedure site: clean & non-tender Neuro status: Neuro function grossly intact. Cardiovascular status: normal Respiratory status: normal Airway patency: baseline Mental status: baseline Post-Op hydration status: normal Vital Signs: Last Vital Signs Temp 36.3 C L 11/19/22 05:35 Pulse 56 L 11/19/22 05:35 Resp 18 11/19/22 05:35 BP 145/91 H 11/19/22 05:35 Pulse Ox 99 11/18/22 22:57 O2 Del Method Room Air 11/18/22 21:21 Pain score (VAS): 2/10 I/O: Intake & Output 11/18/22 11/18/22 11/19/22 15:59 23:59 07:59 Intake Total 500 Output Total 760 Balance -260 Post-procedural complaints: none Patient feedback: Patient satisfied with anesthetic care.
--- NOTE | 2022-11-19 10:57 | PC.NURSE ---
[id number] Introductions were made, then consulted with patient to assess needs related to . Mother led the conversation with her?plans to feed?her infant and the?experience so far with infant latching earlier effectively without pain. Resources provided for inpatient with name written on the white board. Mother voiced understanding of information and is available for assistance to wake infant up to breastfeed. Mother works well with her infant with encouragement and education. Encouraged understanding of the benefits of skin to skin (demonstrating unwrapping and placing upright on her chest), stimulating with massage touch, changing positions to encourage wakefulness, how to watch for early feeding cues, feeding on demand (aiming for 8-12 times in 24 hours, about every 2-3 hours), milk production, and building/maintaining a milk supply. Resources used to facilitate learning were used with the tool. is sleepy and reluctant. Mother has pumped first breast milk at bedside in a bottle. We discussed different options of feeding her . Flange fitting 21mm completed. Mother has had a late before and voiced understanding of the challenges of the first few days into a week of the process of working with to breastfeed. Encouraged mother to attempt to wake infant to breastfeed, however; if there is no latch continue to protect her milk supply with pumping. Discussed paced bottle feeding to preserve breast focus by not getting infant accustomed to the quick fill of a dripping bottle. Reviewed option of using a nipple shield for training to place the tongue down and get a mouthful. At this time, we want to give the time to see how he feeds at the breast to not introduce a tool that is not needed. Mother voiced understanding of skin to skin, stimulating with massage touch, responsive feedings, hand expressed colostrum, talking to to encourage if it has been 2 -2.5 hours since the start of the last , to call if does not latch, or if there is discomfort with . Resources provided for inpatient with name written on the communication board. Mother voiced understanding of information, demonstrated learning and will call if there is a request for assistance. Reported to the primary RN.
--- NOTE | 2022-11-19 13:15 | PM.OBPNVD ---
OB - PN: Subj Subjective Date/time seen: 11/19/22 13:15 Narrative: Pain OK. Would like circumcision for son. OB - PN: Obj Data Labs 11/19/22 05:48 Labs: Laboratory Results - last 24 hr 11/18/22 11/18/22 11/19/22 21:13 21:14 05:48 WBC 12.1 H RBC 4.54 Hgb 13.7 12.2 Hct 39.1 34.8 L MCV 86.1 MCH 30.2 MCHC 35.0 RDW 12.4 Plt Count 165 MPV 12.4 H Immature Gran % (Auto) 0.7 H Neut % (Auto) 61.0 Lymph % (Auto) 31.0 [place] % (Auto) 6.4 Eos % (Auto) 0.3 Baso % (Auto) 0.6 Lymph # (Auto) 3.75 H [place] # (Auto) 0.8 H Eos # (Auto) 0.0 Baso # (Auto) 0.1 Abs Immat Gran (auto) 0.08 H Absolute Neuts (auto) 7.4 H Absolute Nucleated RBC 0.0 Nucleated RBC % 0.0 Blood Type O Positive Antibody Screen Negative OB - PN A/P Plan Comments: A: PPD#1, doing well. P: Routine care. Reviewed circ. Exam Psych: Other: AVSS ABD soft, nontender, fundus firm EXT nontender
[2022-11-19 15:14] LABS: Rapid Plasma Reagin Non-Reactive (NonReactive)
[2022-11-20] MEDS: IBUPROFEN 600 MG TABLET PO ×2 (01:55→10:56)
[2022-11-20 08:05] VITALS: BP 147/95; PULSE 59; RESP 16; TEMP 36.9; O2SAT 99
--- NOTE | 2022-11-20 08:37 | P.PNOB_ITS ---
OB - PN: Subj Subjective Date/time seen: 11/20/22 08:37 Patient comments: no complaints and pain well controlled baby status: doing well and nursing well OB - PN: Obj Data Labs 11/19/22 05:48 Labs: Laboratory Results - last 24 hr 11/18/22 21:13 RPR Non-reactive OB - PN A/P Plan day: 2 Plan: routine care, discharge home ( no care bed) and follow up 6 weeks Time Spent With Patient Time: Total time spent is greater than 50% in coordination of care (as documented) at patient's floor/unit and/or counseling patient: Time with patient: less than 15 minutes Exam Const: General: cooperative, healthy appearing, comfortable and well groomed Nutritional Appearance: average body habitus Orientation/consciousness: orie nted to person, oriented to place and oriented to time HENMT: Head: normal to inspection Resp: Effort & Inspection: normal respiratory effort Cardio: Rate: regular rate Rhythm: regular rhythm Heart sounds: S1 normal heart sound present and S2 normal heart sound present GI: Inspection: normal to inspection
[2022-11-20] MEDS: MULTIVIT/MIN/PREN/FOL AC/IRON TABLET 1 TAB PO (10:57)
--- NOTE | 2022-11-20 11:41 | PC.NURSE ---
[id number] Consulted per requests. Mother states infant is latching better. We discussed expectations, milk production, preventing engorgement, hand expression with pumping, and plan to assess latching approximately at noon. remains on IVF's and is being supplemented for additional support prior to mothers full milk volume.
--- NOTE | 2022-11-20 15:07 | PC.NURSE ---
1205 - Purposefully rounded for our planned consult. is in the nursery with the Primary RN getting testing. 1223 - 1300 Consulted after being requested. Mother had latched effectively to the right breast using the cross cradle positioning, denies pain, nice rounded cheek line, no dimpling, swallowing was visualized and heard. Repeated latching. At times infant appears to be latched shallow with a less than 90 degree mouth, however; infant has milk in his mouth when detached. At times there's is a slight crease across the nipple. Demonstrated to mother some recommendations to work on improving a deeper latch with chin buried into the breast and turned more towards mother with infants body in closer. Mother voiced understanding of how to visualize and listen for a swallow. [id number] Reviewed milk production of first milk and transitioning to a full milk supply. Discussion was had regarding rest, eating well, and balancing that with nipple stimulation and feeding her infant. Flange fitted and 24mm works well with no pain to mother.
--- NOTE | 2022-11-20 16:10 | PC.NURSE ---
[id number] Mother effectively latches to the left breast and swallowing was visualized and heard with a 3:1 suck/swallow ratio, nice rounded cheek line, lips flanged, and mother denies pain. Reiterated milk production and answered any and all questions. Encouraged mother to ask for assistance if infant doesn't latch or there's pain with latching. Reported to the Primary RN.
[2022-11-20] MEDS: ZOLPIDEM TARTRATE (*CRX) 5 MG TABLET (19:50)
--- NOTE | 2022-11-20 19:50 | PC.NURSE ---
Patient discharged to a no care bed, supplies provided. Reviewed HIP precautions with patient and handout provided.
--- NOTE | 2022-11-20 19:50 | PC.NURSE ---
Patient received instruction on viewing the discharge video Mother & Baby Care, The First Two Weeks . Patient was given the opportunity and encouraged to ask questions. Patient verbalized understanding of information shared and has been given the mother/baby guide for home reference.
== END 2022-11-20 19:50 | disposition home or self-care (01) | DRG 807 ==
LOC: ANHLDR 22:44 → ANHOB2 11-19 02:02
PROVIDERS: Admitting Provider Obstetrics & Gynecology; PCP Family Medicine; Visit Provider Obstetrics & Gynecology
DX: O60.14X0 Preterm labor third trimester with preterm delivery third trimester, not applicable or unspecified (principal); Z37.0 Single live birth; O62.3 Precipitate labor; Z3A.36 36 weeks gestation of pregnancy
CPT/HCPCS: 36415; 85014; 85018; 85025; 86592; 86850; 86900; 86901; A9270; J0290; J2590; J2795; J7120

== ENCOUNTER 2024-09-06 12:02 | Outpatient (CLI) | payer SELFPAY ==
--- OUTSIDE RECORDS SUMMARY | 2024-09-06 13:17 | XMS_ITS | Referral Summary ---
Author Organization [facility] [address] [facility] Address [address] [place] [address] Care Team Providers Care Marine Driller Name Role Phone Rickey Frias MD Unavailable [phone] Kehinde Trejo MD Primary Care Provider [phone] Encounters Date Type Department Care Team Description 09/04/2024 Results Follow-Up [facility] Medical [facility]ient [facility] at [address] [phone] Olga Hebert NP 09/03/2024 12:55 PM CDT - 09/03/2024 11:59 PM CDT Hospital Encounter [address] [address] Sore throat Discharge Disposition: Discharge to home or self care 09/03/2024 11:00 AM CDT Office Visit [facility] Con[facility]ient Care at [address] [phone] Olga Hebert, ARI Sore throat (Primary Dx) 07/23/2024 Results Follow-Up [facility] [address] [place] [address] Kehinde Trejo MD 07/11/2024 10:48 AM RESOLUTE PROFESSIONAL - 07/11/2024 11:59 PM RESOLUTE PROFESSIONAL Hospital Encounter [address] [address] Recurrent fever Discharge Disposition: Discharge to home or self care 07/11/2024 10:45 AM RESOLUTE PROFESSIONAL Lab [facility] Outpatient Lab at [address] [address] Recurrent fever (Primary Dx) 07/11/2024 10:00 AM RESOLUTE PROFESSIONAL Office Visit [facility] Primary Care at [address] [phone] Kehinde Trejo MD Recurrent fever (Primary Dx) 07/07/2024 12:15 PM RESOLUTE PROFESSIONAL Ancillary Procedure [facility] Imaging at [address] [phone] 07/06/2024 5:02 PM RESOLUTE PROFESSIONAL - 07/06/2024 11:59 PM RESOLUTE PROFESSIONAL Hospital Encounter [place] [id number] Acute cystitis with hematuria Discharge Disposition: Discharge to home or self care 07/06/2024 4:00 PM RESOLUTE PROFESSIONAL Office Visit [facility] Con[facility]ient Care at [address] [phone] Lizz Cummings NP Fever, unspecified fever cause (Primary Dx); Acute viral syndrome; Acute cystitis with hematuria from Last 3 Months Allergies No known active allergies Medications cefdinir (OMNICEF) 300 mg capsule Take 1 capsule (300 mg total) by mouth 2 (two) times a day 20 capsule 5 Active Additional Information Patient not taking.Reported on 09/03/2024 Active Problems Problem Noted Date Diagnosed Date Recurrent fever 07/23/2024 Assessment & Plan (07/23/2024 10:04 AM RESOLUTE PROFESSIONAL): Terat imepricially with cefidinri and medrol. Reivewed prior workup and imainge. WIll zamzam geeeonse. Encounter for medical examination to establish c are 03/20/2021 Assessment & Plan (03/20/2021 2:51 PM CDT): 1. Eat a healthy diet: focus on lean meats and proteins, more fruits, vegetables and whole grains and low in sugars and fats. Limit red meat and avoid processed meat. 2. Maintain a healthy weight; avoid being overweight. Aim for a normal body mass index (BMI) of 18.5-24.9. Help learning to eat healthier, we can set up appointment with glycerin operator/soil engineer. 3. Have an active lifestyle, strive for 30 minutes of moderate exercise 5 times a week and strength or resistance training at least twice a week. 4. Use broad-spectrum (UVA+UVB) sunscreen with SPF 30 or greater, is water resistant, limit time spent in the sun (10 am-4pm), wear hat, wear UV protective clothing, wear sunglasses. Never use a tanning bed. Skin that was irradiated may be more sensitive over your lifetime. 5. Does not smoke or chew tobacco. 6. Limit alcohol intake, 1 drink per day for a woman. Encounter for screening for lipid disorder 03/20 Assessment & Plan (03/20/2021 2:50 PM CDT): No prior lipid panels. Lipid panel ordered; will call w/results when received. Reviewed diet/exercise recommendations. BMI 24.0-24.9, adult 03/20/2021 Assessment & Plan (03/20/2021 2:50 PM CDT): Discussed healthy diet and importance of regular physical activity. BMI is acceptable for this patient. Resolved Problems Problem Noted Date Diagnosed Date Resolved Date Mitral valve prolapse 12/13/20162020 Nonrheumatic mitral valve regurgitation 12/13/2016 03/20/2021 Right upper quadrant abdominal pain 09/07/2014 03/20/2021 Overview (08/27/2016): RUQ abdominal pain Palpitations 11/13/2011 03/20/2021 Sensation of chest tightness 11/13/2011 03/20/2021 Vasovagal syncope 11/13/2011 03/20/2021 Immunizations Immunization Administration Dates Next Due DTaP 07/25/1996, 4,1992,05/03,1992 Hep B Vaccine 08/12/2001,06/10/2001,05/06/2001 Hib (HbOC) 04/04/1993, 3,1992,03/01 IPV 07/25/1996, 4,1992,03/01 Influenza, Split 02/15/2013 Influenza, Trivalent, IM (MDV) 02/05/2020 Influenza, Trivalent, Preser vative Free, Intramuscular 04/23/2014,06/08/2012 Influenza, Unspecified 07/11/2024(Deferr ed: Patient Refused),05/24/2023(Deferred: Patient Refused),02/21/2021 MMR 07/25/1996,04/04/1993 TD Preservative Free 10/28/2005 Tdap 08/14/2019,01/08/2014 Social History Tobacco Use Types Packs/Day Years Used Date Smoking Tobacco: Never Smokeless Tobacco: Never Alcohol Use Standard Drinks/Week Comments No 0 (1 standard drink = 0.6 oz pur e alcohol) PHQ-2 Answer Date Recorded PHQ-2 Total Score (If total score is 3 or more points, staff should administer the PHQ-9) 0 07/11/2024 Comments No Sex and Gender Information Value Date Recorded Sex Assigned at Not on file Legal Sex Female 11:32 AM RESOLUTE PROFESSIONAL Gender Identity Not on file Sexual Orientation Not on file Last Filed Vital Signs Vital Sign Reading Time Taken Comments Blood Pressure 117/76 09/03/2024 11:08 AM CDT Pulse 71 09/03/2024 11:08 AM CDT Temperature 37.6 C (99.7 F) 09/03/2024 11:08 AM CDT Respiratory Rate 18 09/03/2024 11:08 AM CDT Oxygen Saturation 99% 09/03/2024 11:08 AM CDT Inhaled Oxygen Concentration - - Weight 61.4 kg (135 lb 6.4 oz) 09/03/2024 11:08 AM CDT Height 157.5 cm (5' 2.01 ) 09/03/2024 11:08 AM C DT Body Mass Index 24.76 09/03/2024 11:08 AM CDT Plan of Treatment Not on file Procedures Procedure Name Priority Date/Time Associated Diagnosis Comments POCT RAPID STREP Routine 09/03/2024 11:2 0 AM CDT Sore throat THROAT CULTURE Routine 09/03/2024 8:00 AM CDT Sore throat EGFR Routine 07/11/2024 10:48 AM RESOLUTE PROFESSIONAL Recurrent fever DIFFERENTIAL AUTO Routine 07/11/2024 10: 48 AM RESOLUTE PROFESSIONAL Recurrent fever CBC WITH AUTO DIFFERENTIAL Routine 07/11/2024 10:48 AM RESOLUTE PROFESSIONAL Recurrent fever MONONUCLEOSIS SCREEN Routine 07/11/2024 10:48 AM RESOLUTE PROFESSIONAL Recurrent fever COMPREHENSIVE METABOLIC PANEL Routine 07/11/2024 10:48 AM RESOLUTE PROFESSIONAL Recurrent fever XR CHEST PA LATERAL 2 VIEWS Schedule NEGIN, Read NEGIN (Appt Today, Awaiting Results) 07/07/2024 12:09 PM RESOLUTE PROFESSIONAL Fever, unspecified fever cause URINE CULTURE Routine 07/06/2024 5:02 PM RESOLUTE PROFESSIONAL Acute cystitis with hematuria POCT URINALYSIS DIPSTICK Routine 07/06/2024 4:45 PM RESOLUTE PROFESSIONAL Acute cystitis with hematuria POC INFLUENZA A/B, COVID-19 ANTIGEN Routine 07/06/2024 4:26 PM RESOLUTE PROFESSIONAL Fever, unspecified fever cause Acute viral syndrome from Last 3 Months Results * POCT rapid strep A (09/03/2024 11:20 AM CDT) Rapid Strep A, POC Negative Negative Swab 09/03/2024 11:2 0 AM CDT Olga Hebert NP POINT OF CARE TEST ORDERAB LES Final Result * Throat culture Throat (09/03/2024 8:00 AM CDT) Report Final Report: No growth of pathogens. Comment:Testing performed by : [facility], [address] [facility], [place]., [address] Throat 09/03/2024 8:00 AM CDT 09/03/2024 4:17 PM CDT Narrative SHARONDA BOSS - 09/04/2024 11:40 AM CDT Testing performed by [facility] Microbiology Laboratory ([phone]). Olga Hebert NP LAB MICROBIOLOGY - GENERAL ORDERABLES Final Result Performing Organization Address City/[facility]/ZIP Co de Phone Number SHARONDA BOSS [address] Department [place] [address] * eGFR (07/11/2024 10:48 AM RESOLUTE PROFESSIONAL) Pathologist [facility] eGFR >90 >=60 mL/min/1. 73 m2 Comment: Interpretive Data Reference Interval Normal >/= 90 mL/min/1.73m2 Mildly decreased* 60 - 89 mL/min/1.73m2 Mildly to moderately decreased 45 - 59 mL/min/1.73m2 Moderately to severely decreased 30 - 44 mL/min/1.73m2 Severely decreased 15 - 29 mL/min/1.73m2 Kidney Failure < 15 mL/min/1.73m2 *Relative to young adult level Estimated glomerular filtration rate is determined by the 2020 CKD-EPI equation recommended by the National Kidney Foundation (A Unifying Approach to GFR Estimation: Recommendations of the NKF-ASK Task Force on Reassessing the Inclusion of Race in Diagnosing Kidney Disease, JASN 202). The CKD-EPI equation should not be used for patients with unstable renal function and has not been validated in children and those over 70. Current interpretive data was last reviewed 2021. Blood 07/11/2024 10:4 8 AM RESOLUTE PROFESSIONAL 07/11/2024 4:28 PM RESOLUTE PROFESSIONAL Kehinde Trejo MD LAB BLOOD ORDERABLES Queenie l Result Performing Organization Address City/[facility]/ZIP Co de Phone Number SHARONDA BOSS [address] Department [place] [address] * (ABNORMAL) Differential, auto (07/11/2024 10:48 AM RESOLUTE PROFESSIONAL) Neutrophil abs 8.2(H) 1.5 - 6.5 K/cumm Imm gran abs 0.1 0.0 - 0.1 K/cumm [facility] Lymphocyte abs 1.4 0.8 - 3.3 K/[facility]umm [facility] Monocyte abs 0.8 0.2 - 0.8 K/cumm [facility] Eosinophil abs 0.1 0.0 - 0.5 K/cumm [facility] Basophil abs 0.0 0.0 - 0.1 K/cumm [facility] Neutrophil pct 77.0 % [facility] Comment: Interpretive Data Percent cell count reference ranges are not reported, since discordance with absolute values may lead to misinterpretation of CBC data. Current Interpretive Data was last revised on 2017. Imm gran pct 0.8 % [facility] Comment: Interpretive Data Percent cell count reference ranges are not reported, since discordance with absolute values may lead to misinterpretation of CBC data. Current Interpretive Data was last revised on 2017. Lymphocyte pct 13.2 % [facility] Comment: Interpretive Data Percent cell count reference ranges are not reported, since discordance with absolute values may lead to misinterpretation of CBC data. Current Interpretive Data was last revised on 2017. Monocyte pct 7.9 % [facility] Comment: Interpretive Data Percent cell count reference ranges are not reported, since discordance with absolute values may lead to misinterpretation of CBC data. Current Interpretive Data was last revised on 2017. Eosinophil pct 0.8 % [facility] Comment: Interpretive Data Percent cell count reference ranges are not reported, since discordance with absolute values may lead to misinterpretation of CBC data. Current Interpretive Data was last revised on 2017. Basophil pct 0.3 % [facility] Comment: Interpretive Data Percent cell count reference ranges are not reported, since discordance with absolute values may lead to misinterpretation of CBC data. Current Interpretive Data was last revised on 2017. Blood 07/11/2024 10:4 8 AM RESOLUTE PROFESSIONAL 07/11/2024 3:36 PM RESOLUTE PROFESSIONAL Kehinde Trejo MD LAB BLOOD ORDERABLES Queenie flynn Result SHARONDA BOSS [address] [place] [address] * (ABNORMAL) CBC with auto differential (07/11/2024 10:48 AM RESOLUTE PROFESSIONAL) [facility] WBC 10.6(H) 3.8 - 9.9 K/cumm Hgb 12.6 11.9 - 15.5 g/dL [facility] Hct 38.6 35.6 - 45.5 % [facility] Plt 333 150 - 400 K/cumm [facility] MPV 10.0 9.1 - 12.3 fL [facility] RBC 4.45 3.90 - 5.20 M/cumm [facility] MCV 86.7 81.3 - 96.4 fL [facility] MCH 28.3 27.1 - 33.3 pg [facility] MCHC 32.6 32.3 - 35.7 g/dL [facility] RDW CV 13.7 11.1 - 14.9 % [facility] RDW SD 43.1 35.7 - 48.1 fL [facility] NRBC abs 0.00 0.00 - 0.01 K/cumm [facility] Blood 07/11/2024 10:4 8 AM RESOLUTE PROFESSIONAL 07/11/2024 3:36 PM RESOLUTE PROFESSIONAL Kehinde Trejo MD LAB BLOOD ORDERABLES Queenie l Result Performing Organization Address [facility]/State/[facility] Co de Phone Number SHARONDA BOSS [address] Department [place] [address] * Mononucleosis screen (07/11/2024 10:48 AM RESOLUTE PROFESSIONAL) [facility] [place] Screen Negative Negative Comment: Interpretive Data Heterophile antibodies are short-lived. Therefore, a positive test is consistent with recent infection. Heterophile antibodies fail to develop in approximately 15% of adults and in a higher percentage of children. Boo-Read virus specific serology (IgG and IgM) testing should be performed to exclude disease in patients with a negative antibody test. Current interpretive data was last revised on 2022. Blood 07/11/2024 10:4 8 AM RESOLUTE PROFESSIONAL 07/11/2024 3:36 PM RESOLUTE PROFESSIONAL Kehinde Trejo MD LAB BLOOD [place] [address] [address] Department [place] [address] * Comprehensive metabolic panel (07/11/2024 10:48 AM RESOLUTE PROFESSIONAL) Sodium 137 135 - 145 mmol/L Potassium, pl 4.4 3.3 - 4.9 mmol/L [facility] Chloride 98 97 - 110 mmol/L [facility] CO2 27 22 - 32 mmol/L [facility] Anion gap 12 2 - 15 mmol/L [facility] BUN 6 6 - 25 mg/dL [facility] Creatinine 0.63 0.60 - 1.10 mg/dL [facility] Glucose 100 70 - 199 mg/dL [facility] Comment: Interpretive Data Fasting glucose >/= 126 mg/dl is diagnostic for diabetes. Fasting is defined as no caloric intake for at least 8 hours. Fasting glucose between 100 mg/dl to 125 mg/dl is diagnostic of prediabetes. In a patient with classic symptoms of hyperglycemia or hyperglycemic crisis, a random glucose >/= 200 mg/dl is diagnostic for diabetes. In the absence of unequivocal hyperglycemia, results should be confirmed by repeat testing. The classification and Diagnosis of Diabetes Diabetes Care 2021; 46: S19-S40. Current interpretive data was last revised 2022. Calcium 9.1 8.5 - 10.3 mg/dL [facility] Bilirubin, total 0.3 0.1 - 1.2 mg/dL [facility] Protein, pl 7.5 6.5 - 8.5 g/dL [facility] Albumin 3.9 3.5 - 5.0 g/dL [facility] Alk phos 71 40 - 130 Units/L [facility] ALT 38 7 - 45 Units/L [facility] AST 39 10 - 45 Units/L [facility] Blood 07/11/2024 10:4 8 AM RESOLUTE PROFESSIONAL 07/11/2024 3:36 PM RESOLUTE PROFESSIONAL Kehinde Trejo MD LAB BLOOD ORDERABLES [place] [address] [address] Department [place] [address] * XR Chest Pa Lateral 2 Views (07/07/2024 12:09 PM RESOLUTE PROFESSIONAL) Anatomical Region Laterality Modality Body, Chest N/A Digital Radiogra phy 07/07/2024 12:5 5 PM RESOLUTE PROFESSIONAL Narrative 07/07/2024 12:55 PM RESOLUTE PROFESSIONAL EXAM DESCRIPTION: XR CHEST PA LATERAL 2 VIEWS REASON FOR STUDY: cough Pt complains of cough Wednesday. No surgery to heart, lungs, or chest. Non-smoker. TECHNIQUE: Frontal and lateral radiographic view(s) of the chest. COMPARISON: None FINDINGS: LUNGS: No focal opacity, pleural effusion, or pneumothorax. HEART/MEDIASTINUM: Cardiac silhouette normal in size. Mediastinal and hilar contours appear normal. LINES/TUBES: None. BONES: No acute osseous abnormality. IMPRESSION: No acute cardiopulmonary abnormality. THIS IS AN ELECTRONICALLY VERIFIED FINAL REPORT 07/07/2024 12:55 PM - Electronically signed by Winston Currie M.D. AM T: Report ID: [id number] Reading Location: [id number] Procedure Note Winston Currie MD - 07/07/2024 EXAM DESCRIPTION: XR CHEST PA LATERAL 2 VIEWS REASON FOR STUDY: cough Pt complains of cough Wednesday. No surgery to heart, lungs, or chest. Non-smoker. TECHNIQUE: Frontal and lateral radiographic view(s) of the chest. COMPARISON: None FINDINGS: LUNGS: No focal opacity, pleural effusion, or pneumothorax. HEART/MEDIASTINUM: Cardiac silhouette normal in size. Mediastinal andhilar contours appear normal. LINES/TUBES: None. BONES: No acute osseous abnormality. IMPRESSION: No acute cardiopulmonary abnormality. THIS IS AN ELECTRONICALLY VERIFIED FINAL REPORT 07/07/2024 12:55 PM - Electronically signed by Winston Currie M.D. AM T: Report ID: [id number] Reading Location: [place] [address] Lizz Cummings NP IMG XR PROCEDURES Final Result * Urine culture Urine, clean voided (07/06/2024 5:02 PM RESOLUTE PROFESSIONAL) Report Final Report: Less than 100,000 colonies/mL (clinically insignificant growth based on current clinical standards) Comment:Testing performed by : [facility], [address] [place]., [address] Organism (CLINICALLY INSIGNIFICANT GROWTH [facility] Urine, clean voided 07/06/2024 5:02 PM RESOLUTE PROFESSIONAL 07/07/2024 12:30 AM RESOLUTE PROFESSIONAL Narrative SHARONDA - 07/08/2024 6:35 AM RESOLUTE PROFESSIONAL Testing performed by [facility] Microbiology Laboratory ([phone]) Lizz Cummings NP LAB MICROBIOLOGY - [facility] Final Result [facility] [address] Department [place] [address] * (ABNORMAL) POCT urinalysis dipstick (07/06/2024 4:45 PM RESOLUTE PROFESSIONAL) Color, Urine, POC Yellow Clarity, ur, POC Clear Clear Glucose, ur, POC Negative Negative MG/DL Bilirubin, ur, POC Negative Negative, Small, Moderate, Large Ketones, ur, POC Negative Negative Specific [place], POC 1.015 1.003 - 1.030 Blood, ur, POC Hemolyzed, trace(A) Negative pH, ur, POC 6.0 5.0 - 8.0 Protein, ur, POC Negative Negative Urobilinogen, urine, POC 1.0 0.2 - 1.0 mg/dL Nitrite, ur, POC Negative Negative Leukocytes, ur, POC Small(A) Negative Lot Number [id number] Urine 07/06/2024 4:45 PM RESOLUTE PROFESSIONAL Lizz Cummings NP POINT OF CARE TEST ORDERABLES F inal Result * POC Influenza A/B, COVID-19 antigen (07/06/2024 4:26 PM RESOLUTE PROFESSIONAL) Influenza A Ag, POC Negative Negative [facility] Influenza B Ag, POC Negative Negative [facility] COVID-19 Ag POC Presumptive Negative Presumptive Negative, Invalid [facility] Nasal 07/06/2024 4:26 PM RESOLUTE PROFESSIONAL Lizz Cummings NP POINT OF CARE TEST ORDERABLES F inal Result [facility] [address] [place] [address], [facility] from Last 3 Months Insurance [facility] CIGNA [facility] [place] Care Teams Marine Driller Relationship Specialty Start Date End Date Kehinde Trejo MD [address] [place] [address] PCP - General Family Medicine 04/23/21 Rickey Frias MD [address] [place] [address] Family Medicine 08/08/20
--- OUTSIDE RECORDS SUMMARY | 2024-09-06 13:17 | XMS_ITS | Encounter Summary ---
Author Organization [facility] Healthcare Address [address] [place] [address] Care Team Providers Care Auto Body Repair Technician Name Role Phone Rickey Frias MD Unavailable [phone] Kehinde Trejo MD Primary Care Provider [phone] Encounter Details Date Type Department Care Team (Late st Contact Info) Description 09/04/2024 Results Follow-Up 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
--- OUTSIDE RECORDS SUMMARY | 2024-09-06 13:17 | XMS_ITS | Encounter Summary ---
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
--- OUTSIDE RECORDS SUMMARY | 2024-09-06 13:17 | XMS_ITS | Clinical Summary ---
Author Organization [facility] Address [address] [place] [address] Care Team Providers Care Beverage Host Name Role Phone Kristin Amin MD Primary Care Provider [phone] , Generic Conversion Unavailable Jayden Murcia MD Unavailable [phone] Allergies No known active allergies Medications VIENVA 0.1-20 MG-MCG tablet TAKE 1 TABLET BY MOUTH EVERY DAY (CONTINUE) SKIP THE LAST 7 DAYS 3 11/24/2016 Active EPIDUO FORTE 0.3-2.5 % Gel APPLY PEA SIZE AMOUNT TO WHOLE FACE AT BEDTIME 3 09/21/2016 Active Active Problems Problem Noted Date Diagnosed Date Mitral valve prolapse 12/13/2016 Nonrheumatic mitral valve regurgitation 12/14/19 17 Family History Medical History Relation Comments Stent Cardiac Paternal Grandfather Relation Status Comments Father Alive Maternal Grandfather Alive Maternal Grandmother Alive Mother Alive Paternal Grandfather Alive Paternal Grandmother Alive Social History Tobacco Use Types Packs/Day Years Used Date Smoking Tobacco: Never Smokeless Tobacco: Never Alcohol Use Standard Drinks/Week Comments No 0 (1 standard drink = 0.6 oz pur e alcohol) Comments Unknown Sex and Gender Information Value Date Recorded Sex Assigned at Not on file Legal Sex Female 10:37 AM CDT Gender Identity Not on file Sexual Orientation Not on file 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 on file Not on file Not on file Last Filed Vital Signs Vital Sign Reading Time Taken Comments Blood Pressure 132/82 12/17/2016 10:17 AM CDT Pulse 69 12/17/2016 10:16 AM CDT Temperature 36.7 C (98.1 F) 12/17/2016 10:16 AM CDT Respiratory Rate 16 12/17/2016 10:16 AM CDT Oxygen Saturation 100% 12/17/2016 10:16 AM CDT Inhaled Oxygen Concentration - - Weight 61.2 kg (135 lb) 12/17/2016 10:16 AM CDT Height 160 cm (5' 3 ) 12/17/2016 10:16 AM CDT Body Mass Index 23.91 12/17/2016 10:16 AM CDT Plan of Treatment Health Maintenance Due Date Last Done Comments Cervical Cancer Screening Pa p Smear (Age 30 to 64) Every 3 Years 1992 Annual Physical 01/01/1995 Hepatitis C 01/01/2010 DTaP, Tdap and Td Vaccines ( 1 - Tdap) 01/01/2011 Hepatitis B Vaccines (1 of 3 - 19+ 3-dose series) 01/01/2011 Cervical Cancer Screening Pa p with HPV Testing (Age 30 to 64) Every 5 Years 01/01/2022 Cervical Cancer Screening with HPV 01/01/2022 COVID-19 Vaccine (2023-2 5 season) 2024 HPV Vaccines Aged Out No longer eligi ble based on patient's age to complete this topic Meningococcal B Vaccine Aged Out No l onger eligible based on patient's age to complete this topic Meningococcal Vaccine Aged Out No lazaro kika eligible based on patient's age to complete this topic Pneumococcal Vaccine: Pediat rics (0 to 5 Years) and At-Risk Patients (6 to 49 Years) Aged Out No longer eligible b ased on patient's age to complete this topic RSV Immunizations Under 20 Months Aged Out No longer eligible based on patient's age to complete this topic Care Teams Beverage Host Relationship Specialty [place] [address] [place] [address] PCP - General FAMILY PRACTICE 12/07/16 , Cherrie Stoll MD 12/07/16 Jayden Napoles MD [address] [place] [address] [place] [employer] CARDIOVASCULAR DISEASE 12/07/16
--- OUTSIDE RECORDS SUMMARY | 2024-09-06 13:18 | XMS_ITS | Clinical Summary ---
Author Organization [facility] Address [address] [place] [address] Care Team Providers Care Exhibition Specialist Name Role Phone Lanie De León MD Unavailable [phone] Source Comments [facility],non-owned Affiliates and Associated Physician Practices is amultiple site organization consisting of ambulatory clinics and hospital sitesin [place] and [place]. This disclosure is being madepursuant to the Care Everywhere program and may not contain all information available regarding this patient. Last updated 18.[facility] Who Works Around You Allergies No known active allergies Medications * Be aware that medications may not be up to date on this document. Alwaysverify current medications with the patient. Levonorgestrel-Eth inyl Estrad (ORSYTHIA PO) Active Active Problems Problem Noted Date Diagnosed Date Mitral valve prolapse 08/10/2012 Family History Medical History Relation Name Comments Hypertension Mother Relation Name Status Comments Mother Social History Tobacco Use Types Packs/Day Years Used Date Smoking Tobacco: Never Smokeless Tobacco: Never Tobacco Cessation:Counseling Given: Yes Alcohol Use Standard Drinks/Week Comments No 0 (1 standard drink = 0.6 oz pur e alcohol) Comments No Sex and Gender Information Value Date Recorded Sex Assigned at Not on file Legal Sex Female 1:55 PM BUNDLE WRAPPER Gender Identity Not on file Sexual Orientation Not on file Last Filed Vital Signs Vital Sign Reading Time Taken Comments Blood Pressure 110/62 05/23/2018 12:00 PM BUNDLE WRAPPER Pulse 61 05/23/2018 12:00 PM BUNDLE WRAPPER Temperature 37 C (98.6 F) 05/23/2018 12:00 PM BUNDLE WRAPPER Respiratory Rate - - Oxygen Saturation 98% 05/23/2018 12:00 PM BUNDLE WRAPPER Inhaled Oxygen Concentration - - Weight 59 kg (130 lb) 05/23/2018 12:00 PM BUNDLE WRAPPER Height 157.5 cm (5' 2 ) 05/23/2018 12:00 PM BUNDLE WRAPPER Body Mass Index 23.78 05/23/2018 12:00 PM BUNDLE WRAPPER Plan of Treatment Health Maintenance Due Date Last Done Comments HIV SCREENING 01/01/2007 HEPATITIS C SCREENING 12/28/2009 DTAP/TDAP/TD VACCINES (1 - Tdap) 01/01/2011 HEPATITIS B VACCINE (1 of 3 - 19+ 3-dose series) 01/01/2011 COVID-19 VACCINE ( - 2023-2 5 season) 2024 DEPRESSION SCREENING 05/24/2024 INFLUENZA VACCINE (Season Ended) 2025 ZOSTER VACCINE (1 of 2) 01/01/2042 HIB VACCINE Aged Out No longer eligi ble based on patient's age to complete this topic HPV VACCINE Aged Out No longer eligi ble based on patient's age to complete this topic MENINGOCOCCAL (Group B) VACC INE SHARED DECISION-MAKING Aged Out No longer eligibl e based on patient's age to complete this topic MENINGOCOCCAL GROUPS A/C/Y/W VACCINE Aged Out No longer eligible b ased on patient's age to complete this topic PNEUMOCOCCAL VACCINE Aged Out No long er eligible based on patient's age to complete this topic Insurance [employer] Care Teams Exhibition Specialist Relationship Specialty Start [place]ón [place] [address] [place] [address] Vene[employer] Marker Obstetrics and Gynecology 08/09/12
--- OUTSIDE RECORDS SUMMARY | 2024-09-06 13:18 | XMS_ITS | Clinical Summary ---
Author Organization [facility] 163 [facility] Address [address] [place] [address] Care Team Providers Care Distribution Lead Name Role Phone Rickey Frias MD Unavailable [phone] Kehinde Trejo MD Primary Care Provider [phone] Allergies No known active allergies Medications cefdinir (OMNICEF) 300 mg capsule Take 1 capsule (300 mg total) by mouth 2 (two) times a day 20 capsule Active Additional Information Patient not taking.Reported on 09/03/2024 Active Problems Problem Noted Date Diagnosed Date Recurrent fever 07/23/2024 Assessment & Plan (07/23/2024 10:04 AM PRODUCTION UNDERWRITER): Terat imepricially with cefidinri and medrol. Reivewed prior workup and imainge. WIll montiro rpseonse. Encounter for medical examination to establish c [...] healthier, we can set up appointment with anvil seating press operator/fitness sales associate. 3. Have an active lifestyle, strive for [...] tightness 11/13/2011 03/20/2021 Vasovagal syncope 11/13/2011 03/20/2021 Encounters Date Type Department Care Team Description 09/04/2024 Results Follow-Up [facility] at [address] [phone] Olga Hebert NP 09/03/2024 12:55 PM CDT - 09/03/2024 11:59 PM CDT Hospital Encounter [address] [address] Sore throat Discharge Disposition: Discharge to home or self care 09/03/2024 11:00 AM CDT Office Visit [facility] at [address] [phone] Olga Hebert NP Sore throat (Primary Dx) 07/23/2024 Results [facility]-Up [facility] [address] [phone] Kehinde Trejo MD 07/11/2024 10:48 AM PRODUCTION UNDERWRITER - 07/11/2024 11:59 PM PRODUCTION UNDERWRITER Hospital Encounter [address] [address] Recurrent fever Discharge Disposition: Discharge to home or self care 07/11/2024 10:45 AM PRODUCTION UNDERWRITER Lab [facility] Outpatient Lab at [address] [phone] Recurrent fever (Primary Dx) 07/11/2024 10:00 AM PRODUCTION UNDERWRITER Office Visit [facility] Primary Care at [address] [phone] Kehinde Trejo MD Recurrent fever (Primary Dx) 07/07/2024 12:15 PM PRODUCTION UNDERWRITER Ancillary Procedure [facility] Imaging at [address] [phone] 07/06/2024 5:02 PM PRODUCTION UNDERWRITER - 07/06/2024 11:59 PM PRODUCTION UNDERWRITER Hospital Encounter [address] [address] Acute cystitis with hematuria Discharge Disposition: Discharge to home or self care 07/06/2024 4:00 PM PRODUCTION UNDERWRITER Office Visit [facility] Medical [facility] at [address] [phone] Lizz Cummings NP Fever, unspecified fever cause (Primary Dx); Acute viral syndrome; Acute cystitis with hematuria from Last 3 Months Immunizations Immunization Administration Dates Next Due DTaP 07/25/1996, 4,1992,05/03,1992 Hep B Vaccine 08/12/2001,06/10/2001,05/06/2001 Hib (HbOC) 04/04/1993, 3,1992,03/01 IPV 07/25/1996, 4,1992,03/01 Influenza, Split 02/15/2013 Influenza, Trivalent, IM (MDV) 02/05/2020 Influenza, Trivalent, Preser vative Free, Intramuscular 04/23/2014,06/08/2012 Influenza, Unspecified 07/11/2024(Deferr ed: Patient Refused),05/24/2023(Deferred: Patient Refused),02/21/2021 MMR 07/25/1996,04/04/1993 TD Preservative Free 10/28/2005 Tdap 08/14/2019,01/08/2014 Surgical History Surgery Date Site/Laterality Comments OTHER SURGICAL HISTORY birthmark removal HERNIA REPAIR 07/22/2020 - 08/21/2020 Medical History Medical History Date Comments Hx Other Medical abnormal heartb eat Hx Other Medical Mitral valve pr olaspe Hx Other Medical wisdom teeth 20 10 Hx Other Medical lisa oliverio jonathan 2011 Hx Other Medical mitral valve pr olapse; Comments: CLS 09/07/2014 - Family History Medical History Relation Name Comments Other Brother 2 Alive and well; Other Father Alive and well; Hypertension Mother Hypertension; Thyroid disease Mother Arthritis Other 1 Family history of Arthritis; Hypertension Other 2 Family history of Hypertension; Heart disease Other 3 Family history of heart problems; Relation Name Status Comments Brother 1 Alive Brother 2 Father Mother Alive Other 1 Other 2 Other 3 Social History Tobacco Use Types Packs/Day Years [...] on file Legal Sex Female 11:32 AM PRODUCTION UNDERWRITER Gender Identity Not on file Sexual Orientation Not on file Obstetrics History Last Filed Vital Signs Vital Sign Reading [...] 09/03/2024 11:08 AM CDT Plan of Treatment Health Maintenance Due Date Last Done Comments Cervical Cancer Screening 1992 Hepatitis C Screening 1992 Varicella Vaccines (1 of 2 - 13+ 2-dose series) 01/01/2005 Regular Well Visit/Exam 18-64 01/01/2010 Influenza Vaccine (Season Ended) 2025 02/21/2021, 02/05/2020, 04/23/2014, Additional history exists Depression Screening 07/11/2025 07/11/2024, 03/20/20 21 DTaP/Tdap/Td Vaccine (8 - Td or Tdap) 08/13/2029 08/14/2019, 01/08/2014, 10/28/2005, Additional history exists Hepatitis B Screening Completed 08/12/2001 , 06/10/2001, 05/06/2001 HPV Vaccines Aged Out No longer eligi ble based on patient's age to complete this topic Pneumococcal vaccine <65 Aged Out No longer eligible based on patient's age to complete this topic Procedures Procedure Name Priority Date/Time Associated Diagnosis Comments POCT RAPID STREP Routine 09/03/2024 11:2 0 AM CDT Sore throat THROAT CULTURE Routine 09/03/2024 8:00 AM CDT Sore throat EGFR Routine 07/11/2024 10:48 AM PRODUCTION UNDERWRITER Recurrent fever DIFFERENTIAL AUTO Routine 07/11/2024 10: 48 AM PRODUCTION UNDERWRITER Recurrent fever CBC WITH AUTO DIFFERENTIAL Routine 07/11/2024 10:48 AM PRODUCTION UNDERWRITER Recurrent fever MONONUCLEOSIS SCREEN Routine 07/11/2024 10:48 AM PRODUCTION UNDERWRITER Recurrent fever COMPREHENSIVE METABOLIC PANEL Routine 07/11/2024 10:48 AM PRODUCTION UNDERWRITER Recurrent fever XR CHEST PA LATERAL 2 VIEWS Schedule NEGIN, Read NEGIN (Appt Today, Awaiting Results) 07/07/2024 12:09 PM PRODUCTION UNDERWRITER Fever, unspecified fever cause URINE CULTURE Routine 07/06/2024 5:02 PM PRODUCTION UNDERWRITER Acute cystitis with hematuria POCT URINALYSIS DIPSTICK Routine 07/06/2024 4:45 PM PRODUCTION UNDERWRITER Acute cystitis with hematuria POC INFLUENZA A/B, COVID-19 ANTIGEN Routine 07/06/2024 4:26 PM PRODUCTION UNDERWRITER Fever, unspecified fever cause Acute viral syndrome from Last 3 Months Results * POCT rapid strep A (09/03/2024 11:20 AM CDT) Rapid Strep A, POC Negative Negative Swab 09/03/2024 11:2 0 AM CDT Olga Hebert NP POINT OF CARE TEST ORDERAB LES Final Result * Throat culture Throat (09/03/2024 8:00 AM CDT) Report Final Report: No growth of pathogens. Comment:Testing performed by : [facility], [address] [place]., [address] Throat 09/03/2024 8:00 AM CDT 09/03/2024 4:17 PM CDT Narrative SHARONDA Bobo 09/04/2024 11:40 AM CDT Testing performed by [facility] ([phone]). Olga Hebert NP LAB MICROBIOLOGY - GENERAL ORDERABLES Final Result SHARONDA BOSS [address] Department [place] [address] * eGFR (07/11/2024 10:48 AM PRODUCTION UNDERWRITER) Pathologist [facility] eGFR >90 >=60 mL/min/1. 73 m2 Comment: [...] of Race in Diagnosing Kidney Disease, JASN 2020). The CKD-EPI equation should not be used for patients with unstable renal function and has not been validated in children and those over 70. Current interpretive data was last reviewed 2021. Blood 07/11/2024 10:4 8 AM PRODUCTION UNDERWRITER 07/11/2024 4:28 PM PRODUCTION UNDERWRITER Kehnide Trejo MD LAB BLOOD ORDERABLES Queenie pruett Result [facility] [address] Department [place] [address] * (ABNORMAL) Differential, auto (07/11/2024 10:48 AM PRODUCTION UNDERWRITER) Pathologist [facility] Neutrophil abs 8.2(H) 1.5 - 6.5 K/cumm Imm gran abs 0.1 0.0 - 0.1 K/cumm [facility] Lymphocyte abs 1.4 0.8 - 3.3 K/cumm [facility] Monocyte abs 0.8 0.2 - 0.8 K/cumm [facility] Eosinophil abs 0.1 0.0 - 0.5 K/cumm [facility] Basophil abs 0.0 0.0 - 0.1 K/cumm [facility] Neutrophil pct 77.0 % [facility] Comment: Interpretive Data Percent cell count reference [...] revised on 2017. Monocyte pct 7.9 % CERNER Comment: Interpretive Data Percent cell count reference ranges are not reported, since discordance with absolute values may lead to misinterpretation of CBC data. Current Interpretive Data was last revised on 2017. Eosinophil pct 0.8 % CERNER CH Comment: Interpretive Data Percent cell count reference [...] on 2017. Blood 07/11/2024 10:4 8 AM PRODUCTION UNDERWRITER 07/11/2024 3:36 PM PRODUCTION UNDERWRITER Kehinde Trejo MD LAB BLOOD ORDERABLES Queenie l Result [facility] [address] Department [place] [address] * (ABNORMAL) CBC with auto differential (07/11/2024 10:48 AM PRODUCTION UNDERWRITER) WBC 10.6(H) 3.8 - 9.9 K/cumm Hgb 12.6 11.9 - 15.5 g/dL [facility] Hct 38.6 35.6 - 45.5 % [facility] Plt 333 150 - 400 K/cumm [facility] MPV 10.0 9.1 - 12.3 fL [facility] RBC 4.45 3.90 - 5.20 M/cumm [facility] MCV 86.7 81.3 - 96.4 fL [facility] MCH 28.3 27.1 - 33.3 pg [facility] MCHC 32.6 32.3 - 35.7 g/dL [facility] RDW CV 13.7 11.1 - 14.9 % [facility] RDW SD 43.1 35.7 - 48.1 fL [facility] NRBC abs 0.00 0.00 - 0.01 K/cumm [facility] Blood 07/11/2024 10:4 8 AM PRODUCTION UNDERWRITER 07/11/2024 3:36 PM PRODUCTION UNDERWRITER Kehinde Trejo MD LAB BLOOD ORDERABLES Queenie l Result Performing Organization Address [facility] de Phone Number [facility] [address] [place] [address] * Mononucleosis screen (07/11/2024 10:48 AM PRODUCTION UNDERWRITER) Pathologist [facility] Nolan Screen Negative Negative Comment: Interpretive Data Heterophile [...] on 2022. Blood 07/11/2024 10:4 8 AM PRODUCTION UNDERWRITER 07/11/2024 3:36 PM PRODUCTION UNDERWRITER Kehinde Trejo MD LAB BLOOD ORDERABLES Queenie l Result Performing Organization Address [facility] Co de Phone Number [facility] [address] [facility] [address] [place], [place] [id number] * Comprehensive metabolic panel (07/11/2024 10:48 AM PRODUCTION UNDERWRITER) Pathologist [facility] Sodium 137 135 - 145 mmol/L Potassium, [...] classification and Diagnosis of Diabetes Diabetes Care 202; 46: S19-S40. Current interpretive data was last [...] CERNER CH Blood 07/11/2024 10:4 8 AM PRODUCTION UNDERWRITER 07/11/2024 3:36 PM PRODUCTION UNDERWRITER Kehinde Trejo MD LAB BLOOD ORDERABLES Queenie pruett Result [facility] [address] Department [place] [address] * XR Chest Pa Lateral 2 Views (07/07/2024 12:09 PM PRODUCTION UNDERWRITER) Anatomical Region Laterality Modality Body, Chest N/A Digital Radiogra phy 07/07/2024 12:5 5 PM PRODUCTION UNDERWRITER Narrative 07/07/2024 12:55 PM PRODUCTION UNDERWRITER EXAM DESCRIPTION: XR CHEST PA LATERAL 2 [...] Winston Currie M.D. AM T: Report ID: [id number] Reading Location: [id number] Procedure Note Winston Currie MD - 07/07/2024 [...] 12:55 PM - Electronically signed by Winston Currei M.D. AM T: Report ID: [id number] Reading Location: [id number] Lizz Cummings NP IMG XR PROCEDURES Final Result * Urine culture Urine, clean voided (07/06/2024 5:02 PM PRODUCTION UNDERWRITER) Report Final Report: Less than 100,000 colonies/mL (clinically insignificant growth based on current clinical standards) Comment:Testing performed by : [facility], [address], [place]., [address] Organism (CLINICALLY INSIGNIFICANT GROWTH CERNER Urine, clean voided 07/06/2024 5:02 PM PRODUCTION UNDERWRITER 07/07/2024 12:30 AM PRODUCTION UNDERWRITER Narrative SHARONDA BOSS - 07/08/2024 6:35 AM PRODUCTION UNDERWRITER Testing performed by [facility] ([phone]) us Lizz Cummings NP LAB MICROBIOLOGY - GENERAL ORDE RABLES Final Result Performing Organization Address City/[facility]/ZIP Co de Phone Number SHARONDA [address] Department [place] [address] * (ABNORMAL) POCT urinalysis dipstick (07/06/2024 4:45 PM PRODUCTION UNDERWRITER) Color, Urine, POC Yellow Clarity, ur, POC Clear Clear Glucose, ur, POC Negative Negative MG/DL Bilirubin, ur, POC Negative Negative, Small, Moderate, Large Ketones, ur, POC Negative Negative Specific Eliot, POC 1.015 1.003 - 1.030 Blood, ur, POC Hemolyzed, trace(A) Negative pH, ur, POC 6.0 5.0 - 8.0 Protein, ur, POC Negative Negative Urobilinogen, urine, POC 1.0 0.2 - 1.0 mg/dL Nitrite, ur, POC Negative Negative Leukocytes, ur, POC Small(A) Negative Lot Number [id number] Urine 07/06/2024 4:45 PM PRODUCTION UNDERWRITER us Lizz Cummings NP POINT OF CARE TEST ORDERABLES F inal Result * POC Influenza A/B, COVID-19 antigen (07/06/2024 4:26 PM PRODUCTION UNDERWRITER) Influenza A Ag, POC Negative Negative [facility] Influenza B Ag, POC Negative Negative [facility] COVID-19 Ag POC Presumptive Negative Presumptive Negative, Invalid [facility] Nasal 07/06/2024 4:26 PM PRODUCTION UNDERWRITER Lizz Cummings NP POINT OF CARE TEST ORDERABLES F inal Result [facility] [address] [place] [address], [facility] from Last 3 Months Insurance CIG[employer] [facility] [employer] [place] Care Teams Distribution Lead Relationship Specialty Start Date End Date Kehinde Trejo MD [address] [place] [address] PCP - General Family Medicine 04/23/21 Rickey Frias MD [address] [place] [address] Family Medicine 08/08/20
[2024-09-06 15:07] LABS: Beta HCG Quantitative 264.97 mIU/ML
[2024-09-07 09:03] LABS: Progesterone 13.2 ng/mL
== END 2024-09-06 12:03 | disposition home or self-care (01) ==
LOC: ANHGOSHLAB 12:05
PROVIDERS: PCP Obstetrics & Gynecology; Visit Provider Obstetrics & Gynecology
DX: O20.0 Threatened abortion (principal)
CPT/HCPCS: 36415; 84144; 84702

== ENCOUNTER 2024-09-08 10:26 | Outpatient (CLI) | payer SELFPAY ==
--- OUTSIDE RECORDS SUMMARY | 2024-09-08 10:35 | XMS_ITS | Referral Summary ---
Author Organization [facility] Address [address] [place] [address] Care Team Providers Care Online Merchandising Manager Name Role Phone Rickey Frias MD Unavailable [phone] Kehinde Trejo MD Primary Care Provider [phone] Encounters Date Type Department Care Team Description 09/04/2024 Results Follow-Up [facility] Medical [facility] Con[facility]ient Care at [address] [phone] Olga Hebert NP 09/03/2024 12:55 PM CDT - 09/03/2024 11:59 PM CDT Hospital Encounter [address] [address] Sore throat Discharge Disposition: Discharge to home or self care 09/03/2024 11:00 AM CDT Office Visit [facility] at [address] [phone] Olga Hebert, ARI Sore throat (Primary Dx) 07/23/2024 Results Follow-Up [facility] [address] [place] [address] Kehinde Trejo MD 07/11/2024 10:48 AM GIVING OFFICER - 07/11/2024 11:59 PM GIVING OFFICER Hospital Encounter [address] [address] Recurrent fever Discharge Disposition: Discharge to home or self care 07/11/2024 10:45 AM GIVING OFFICER Lab [facility] Outpatient Lab at [address] [address] Recurrent fever (Primary Dx) 07/11/2024 10:00 AM GIVING OFFICER Office Visit [facility] Primary Care at [address] [phone] Kehinde Trejo MD Recurrent fever (Primary Dx) 07/07/2024 12:15 PM GIVING OFFICER Ancillary Procedure [facility] Imaging at [address] [phone] 07/06/2024 5:02 PM GIVING OFFICER - 07/06/2024 11:59 PM GIVING OFFICER Hospital Encounter [place] [id number] Acute cystitis with hematuria Discharge Disposition: Discharge to home or self care 07/06/2024 4:00 PM GIVING OFFICER Office Visit [facility] at [address] [phone] Lizz Cummings NP Fever, unspecified fever cause [...] 07/23/2024 Assessment & Plan (07/23/2024 10:04 AM GIVING OFFICER): Terat imepricially with cefidinri and medrol. Reivewed [...] healthier, we can set up appointment with electron beam machine welder setter/coal sample tester. 3. Have an active lifestyle, strive for [...] on file Legal Sex Female 11:32 AM GIVING OFFICER Gender Identity Not on file Sexual Orientation [...] Sore throat EGFR Routine 07/11/2024 10:48 AM GIVING OFFICER Recurrent fever DIFFERENTIAL AUTO Routine 07/11/2024 10: 48 AM GIVING OFFICER Recurrent fever CBC WITH AUTO DIFFERENTIAL Routine 07/11/2024 10:48 AM GIVING OFFICER Recurrent fever MONONUCLEOSIS SCREEN Routine 07/11/2024 10:48 AM GIVING OFFICER Recurrent fever COMPREHENSIVE METABOLIC PANEL Routine 07/11/2024 10:48 AM GIVING OFFICER Recurrent fever XR CHEST PA LATERAL 2 VIEWS Schedule NEGIN, Read NEGIN (Appt Today, Awaiting Results) 07/07/2024 12:09 PM GIVING OFFICER Fever, unspecified fever cause URINE CULTURE Routine 07/06/2024 5:02 PM GIVING OFFICER Acute cystitis with hematuria POCT URINALYSIS DIPSTICK Routine 07/06/2024 4:45 PM GIVING OFFICER Acute cystitis with hematuria POC INFLUENZA A/B, COVID-19 ANTIGEN Routine 07/06/2024 4:26 PM GIVING OFFICER Fever, unspecified fever cause Acute viral syndrome from Last 3 Months Results * POCT rapid strep A (09/03/2024 11:20 AM CDT) Rapid Strep A, POC Negative Negative Swab 09/03/2024 11:2 0 AM CDT Olga Hebert NP POINT OF CARE TEST ORDERAB LES Final Result * Throat culture Throat (09/03/2024 8:00 AM CDT) Report Final Report: No growth of pathogens. Comment:Testing performed by : [facility], [address] [facility], [place]., [address] Throat 09/03/2024 8:00 AM CDT 09/03/2024 4:17 PM CDT Narrative SHARONDA BOSS - 09/04/2024 11:40 AM CDT Testing performed by [facility] Microbiology Laboratory ([phone]). Olga Hebert NP LAB MICROBIOLOGY - GENERAL ORDERABLES Final Result Performing Organization Address City/[facility]/ZIP Co de Phone Number SHARONDA BOSS [address] [place] [address] * eGFR (07/11/2024 10:48 AM GIVING OFFICER) Pathologist [facility] eGFR >90 >=60 mL/min/1. 73 m2 Comment: [...] reviewed 2021. Blood 07/11/2024 10:4 8 AM GIVING OFFICER 07/11/2024 4:28 PM GIVING OFFICER Kehinde Trejo MD LAB BLOOD ORDERABLES Queenie l Result Performing Organization Address City/[facility]/ZIP Co de Phone Number SHARONDA BOSS [address] Department [place] [address] * (ABNORMAL) Differential, auto (07/11/2024 10:48 AM GIVING OFFICER) Neutrophil abs 8.2(H) 1.5 - 6.5 K/cumm Imm gran abs 0.1 0.0 - 0.1 K/cumm [facility] Lymphocyte abs 1.4 0.8 - 3.3 K/cumm [facility] Monocyte abs 0.8 0.2 - 0.8 K/cumm CERN[facility] Eosinophil abs 0.1 0.0 - 0.5 K/cumm [facility] Basophil abs 0.0 0.0 - 0.1 K/cumm [facility] Neutrophil pct 77.0 % CERNER Comment: Interpretive [...] revised on 2017. Monocyte pct 7.9 % [facility] Comment: Interpretive Data Percent cell count reference [...] on 2017. Blood 07/11/2024 10:4 8 AM GIVING OFFICER 07/11/2024 3:36 PM GIVING OFFICER Kehinde Trejo MD LAB BLOOD ORDERABLES Queenie flynn Result SHARONDA BOSS [address] Department [place] [address] * (ABNORMAL) CBC with auto differential (07/11/2024 10:48 AM GIVING OFFICER) [facility] WBC 10.6(H) 3.8 - 9.9 K/cumm Hgb 12.6 11.9 - 15.5 g/dL [facility] Hct 38.6 35.6 - 45.5 % [facility] Plt 333 150 - 400 K/cumm [facility] MPV 10.0 9.1 - 12.[address] [facility] RBC 4.45 3.90 - 5.20 M/cumm [facility] MCV 86.7 81.3 - 96.[address] [facility] MCH 28.3 27.1 - 33.[address] [facility] MCHC 32.6 32.3 - 35.7 g/dL [facility] RDW CV 13.7 11.1 - 14.9 % [facility] RDW SD 43.1 35.7 - 48.[address] [facility] NRBC abs 0.00 0.00 - 0.01 K/cumm [facility] Blood 07/11/2024 10:4 8 AM GIVING OFFICER 07/11/2024 3:36 PM GIVING OFFICER Kehinde Trejo MD LAB BLOOD ORDERABLES Queenie l Result Performing Organization Address [facility]/State/[facility] Co de Phone Number SHARONDA BOSS [address] Department [place] [address] * Mononucleosis screen (07/11/2024 10:48 AM GIVING OFFICER) [facility] [place] Screen Negative Negative Comment: Interpretive Data Heterophile [...] on 2022. Blood 07/11/2024 10:4 8 AM GIVING OFFICER 07/11/2024 3:36 PM GIVING OFFICER Kehinde Trejo MD LAB BLOOD [place] [address] [address] Department [place] [address] * Comprehensive metabolic panel (07/11/2024 10:48 AM GIVING OFFICER) Sodium 137 135 - 145 mmol/L Potassium, [...] CERNER CH Blood 07/11/2024 10:4 8 AM GIVING OFFICER 07/11/2024 3:36 PM GIVING OFFICER Kehinde Trejo MD LAB BLOOD ORDERABLES [place] [id number] [facility] Department [place] [address] * XR Chest Pa Lateral 2 Views (07/07/2024 12:09 PM GIVING OFFICER) Anatomical Region Laterality Modality Body, Chest N/A Digital Radiogra phy 07/07/2024 12:5 5 PM GIVING OFFICER Narrative 07/07/2024 12:55 PM GIVING OFFICER EXAM DESCRIPTION: XR CHEST PA LATERAL 2 [...] Winston Currie M.D. AM T: Report ID: [id number] Reading Location: [id number] Procedure Note Winston Currie MD - 07/07/2024 [...] Winston Currie M.D. AM T: Report ID: [id number] Reading Location: [place] [address] Lizz Cummings NP IMG XR PROCEDURES Final Result * Urine culture Urine, clean voided (07/06/2024 5:02 PM GIVING OFFICER) Report Final Report: Less than 100,000 colonies/mL (clinically insignificant growth based on current clinical standards) Comment:Testing performed by : [facility], [address] [place]., [address] Organism (CLINICALLY INSIGNIFICANT GROWTH [facility] Urine, clean voided 07/06/2024 5:02 PM GIVING OFFICER 07/07/2024 12:30 AM GIVING OFFICER Narrative SHARONDA - 07/08/2024 6:35 AM GIVING OFFICER Testing performed by [facility] Microbiology Laboratory ([phone]) Lizz Cummings NP LAB MICROBIOLOGY - [facility] Final Result [facility] [address] Department [place] [address] * (ABNORMAL) POCT urinalysis dipstick (07/06/2024 4:45 PM GIVING OFFICER) Color, Urine, POC Yellow Clarity, ur, POC Clear Clear Glucose, ur, POC Negative Negative MG/DL Bilirubin, ur, POC Negative Negative, Small, Moderate, Large Ketones, ur, POC Negative Negative Specific [place], POC 1.015 1.003 - 1.030 Blood, ur, POC Hemolyzed, trace(A) Negative pH, ur, POC 6.0 5.0 - 8.0 Protein, ur, POC Negative Negative Urobilinogen, urine, POC 1.0 0.2 - 1.0 mg/dL Nitrite, ur, POC Negative Negative Leukocytes, ur, POC Small(A) Negative Lot Number [id number] Urine 07/06/2024 4:45 PM GIVING OFFICER Lizz Cummings NP POINT OF CARE TEST ORDERABLES F inal Result * POC Influenza A/B, COVID-19 antigen (07/06/2024 4:26 PM GIVING OFFICER) Influenza A Ag, POC Negative Negative [facility] Influenza B Ag, POC Negative Negative [facility] COVID-19 Ag POC Presumptive Negative Presumptive Negative, Invalid [facility] Nasal 07/06/2024 4:26 PM GIVING OFFICER Lizz Cummings NP POINT OF CARE TEST ORDERABLES F inal Result [facility] [address] [place] [address], [facility] from Last 3 Months Insurance [facility] CIGNA [facility] [place] Care Teams Online Merchandising Manager Relationship Specialty Start Date End Date Kehinde Trejo MD [address] [place] [address] PCP - General Family Medicine 04/23/21 Rickey Frias MD [address] [place] [address] Family Medicine 08/08/20
--- OUTSIDE RECORDS SUMMARY | 2024-09-08 10:35 | XMS_ITS | Clinical Summary ---
Author Organization [facility] Address [address] [place] [address] Care Team Providers Care Advertising Solicitor Name Role Phone Lanie De León MD Unavailable [phone] Source Comments [facility],non-owned Affiliates and Associated Physician Practices is amultiple site organization consisting of ambulatory clinics and hospital sitesin [place], [place] and [place]. This disclosure is being madepursuant to the Care Everywhere program and may not contain all information available regarding this patient. Last updated 18.[facility] [place] Allergies No known active allergies Medications * [...] on file Legal Sex Female 1:55 PM SENIOR FRONT END ENGINEER Gender Identity Not on file Sexual Orientation Not on file Last Filed Vital Signs Vital Sign Reading Time Taken Comments Blood Pressure 110/62 05/23/2018 12:00 PM SENIOR FRONT END ENGINEER Pulse 61 05/23/2018 12:00 PM SENIOR FRONT END ENGINEER Temperature 37 C (98.6 F) 05/23/2018 12:00 PM SENIOR FRONT END ENGINEER Respiratory Rate - - Oxygen Saturation 98% 05/23/2018 12:00 PM SENIOR FRONT END ENGINEER Inhaled Oxygen Concentration - - Weight 59 kg (130 lb) 05/23/2018 12:00 PM SENIOR FRONT END ENGINEER Height 157.5 cm (5' 2 ) 05/23/2018 12:00 PM SENIOR FRONT END ENGINEER Body Mass Index 23.78 05/23/2018 12:00 PM SENIOR FRONT END ENGINEER Plan of Treatment Health Maintenance Due Date [...] complete this topic Insurance [place] CIGNA CIGNA [facility] Address: [facility] [address] [place] [address] Care Teams Advertising Solicitor Relationship Specialty Start [place] [address] [place] [address] Nurse Wound Care Obstetrics and Gynecology 08/09/12
--- OUTSIDE RECORDS SUMMARY | 2024-09-08 10:35 | XMS_ITS | Encounter Summary ---
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
--- OUTSIDE RECORDS SUMMARY | 2024-09-08 10:35 | XMS_ITS | Clinical Summary ---
Author Organization [facility] 163 [facility] Address [address] [place] [address] Care Team Providers Care Card Hanger Name Role Phone Rickey Frisa MD Unavailable [phone] Kehinde Trejo MD Primary Care Provider [phone] Allergies No known active allergies Medications cefdinir (OMNICEF) 300 mg capsule Take 1 capsule (300 mg total) by mouth 2 (two) times a day 20 capsule Active Additional Information Patient not taking.Reported on 09/03/2024 Active Problems Problem Noted Date Diagnosed Date Recurrent fever 07/23/2024 Assessment & Plan (07/23/2024 10:04 AM ASTROBIOLOGIST): Terat imepricially with cefidinri and medrol. Reivewed [...] healthier, we can set up appointment with elementary math tutor/young adult librarian. 3. Have an active lifestyle, strive for [...] Department Care Team Description 09/04/2024 Results Follow-Up [facility] Convenient Care at [address] [phone] Olga Hebert NP 09/03/2024 12:55 PM CDT - 09/03/2024 11:59 PM CDT Hospital Encounter [address] [address] Sore throat Discharge Disposition: Discharge to home or self care 09/03/2024 11:00 AM CDT Office Visit [facility] at [address] [phone] Olga Hebert NP Sore throat (Primary Dx) 07/23/2024 Results [facility] [address] [phone] Kehinde Trejo MD 07/11/2024 10:48 AM ASTROBIOLOGIST - 07/11/2024 11:59 PM ASTROBIOLOGIST Hospital Encounter [address] [address] Recurrent fever Discharge Disposition: Discharge to home or self care 07/11/2024 10:45 AM ASTROBIOLOGIST Lab [facility] Outpatient Lab at [address] [phone] Recurrent fever (Primary Dx) 07/11/2024 10:00 AM ASTROBIOLOGIST Office Visit [facility] Primary Care at [address] [phone] Kehinde Trejo MD Recurrent fever (Primary Dx) 07/07/2024 12:15 PM ASTROBIOLOGIST Ancillary Procedure [facility] Imaging at [address] [phone] 07/06/2024 5:02 PM ASTROBIOLOGIST - 07/06/2024 11:59 PM ASTROBIOLOGIST Hospital Encounter [address] [address] Acute cystitis with hematuria Discharge Disposition: Discharge to home or self care 07/06/2024 4:00 PM ASTROBIOLOGIST Office Visit [facility] Medical [facility]venient Care at [address] [phone] Lizz Cummings NP Fever, unspecified fever cause [...] on file Legal Sex Female 11:32 AM ASTROBIOLOGIST Gender Identity Not on file Sexual Orientation [...] Sore throat EGFR Routine 07/11/2024 10:48 AM ASTROBIOLOGIST Recurrent fever DIFFERENTIAL AUTO Routine 07/11/2024 10: 48 AM ASTROBIOLOGIST Recurrent fever CBC WITH AUTO DIFFERENTIAL Routine 07/11/2024 10:48 AM ASTROBIOLOGIST Recurrent fever MONONUCLEOSIS SCREEN Routine 07/11/2024 10:48 AM ASTROBIOLOGIST Recurrent fever COMPREHENSIVE METABOLIC PANEL Routine 07/11/2024 10:48 AM ASTROBIOLOGIST Recurrent fever XR CHEST PA LATERAL 2 VIEWS Schedule NEGIN, Read NEGIN (Appt Today, Awaiting Results) 07/07/2024 12:09 PM ASTROBIOLOGIST Fever, unspecified fever cause URINE CULTURE Routine 07/06/2024 5:02 PM ASTROBIOLOGIST Acute cystitis with hematuria POCT URINALYSIS DIPSTICK Routine 07/06/2024 4:45 PM ASTROBIOLOGIST Acute cystitis with hematuria POC INFLUENZA A/B, COVID-19 ANTIGEN Routine 07/06/2024 4:26 PM ASTROBIOLOGIST Fever, unspecified fever cause Acute viral syndrome from Last 3 Months Results * POCT rapid strep A (09/03/2024 11:20 AM CDT) Rapid Strep A, POC Negative Negative Swab 09/03/2024 11:2 0 AM CDT Olga Hebert NP POINT OF CARE TEST ORDERAB LES Final Result * Throat culture Throat (09/03/2024 8:00 AM CDT) Report Final Report: No growth of pathogens. Comment:Testing performed by : [facility], [address] [place]., [address] Throat 09/03/2024 8:00 AM CDT 09/03/2024 4:17 PM CDT Narrative SHARONDA Bobo 09/04/2024 11:40 AM CDT Testing performed by [facility] Microbiology Laboratory ([phone]). Olga Hebert NP LAB MICROBIOLOGY - GENERAL ORDERABLES Final Result SHARONDA BOSS [address] Department [place] [address] * eGFR (07/11/2024 10:48 AM ASTROBIOLOGIST) Pathologist [facility] eGFR >90 >=60 mL/min/1. 73 m2 Comment: [...] reviewed 2021. Blood 07/11/2024 10:4 8 AM ASTROBIOLOGIST 07/11/2024 4:28 PM ASTROBIOLOGIST Kehinde Trejo MD LAB BLOOD ORDERABLES Queenie pruett Result [facility] [address] [place] [address] * (ABNORMAL) Differential, auto (07/11/2024 10:48 AM ASTROBIOLOGIST) Pathologist [facility] Neutrophil abs 8.2(H) 1.5 - 6.5 K/cumm Imm gran abs 0.1 0.0 - 0.1 K/cumm [facility] Lymphocyte abs 1.4 0.8 - 3.3 K/cumm [facility] Monocyte abs 0.8 0.2 - 0.8 K/cumm [facility] Eosinophil abs 0.1 0.0 - 0.5 K/cumm [facility] Basophil abs 0.0 0.0 - 0.1 K/cumm [facility] Neutrophil pct 77.0 % [facility] Comment: Interpretive Data Percent cell [...] on 2017. Blood 07/11/2024 10:4 8 AM ASTROBIOLOGIST 07/11/2024 3:36 PM ASTROBIOLOGIST Kehinde Trejo MD LAB BLOOD ORDERABLES Queenie l Result [facility] [address] Department [place] [address] * (ABNORMAL) CBC with auto differential (07/11/2024 10:48 AM ASTROBIOLOGIST) WBC 10.6(H) 3.8 - 9.9 K/cumm Hgb 12.6 11.9 - 15.5 g/dL [facility] Hct 38.6 35.6 - 45.5 % [facility] Plt 333 150 - 400 K/cumm [facility] MPV 10.0 9.1 - 12.3 fL [facility] RBC 4.45 3.90 - 5.20 M/cumm [facility] MCV 86.7 81.3 - 96.4 fL [facility] MCH 28.3 27.1 - 33.3 pg [facility] MCHC 32.6 32.3 - 35.7 g/dL [facility] RDW CV 13.7 11.1 - 14.9 % [facility] RDW SD 43.1 35.7 - 48.1 fL [facility] NRBC abs 0.00 0.00 - 0.01 K/cumm [facility] Blood 07/11/2024 10:4 8 AM ASTROBIOLOGIST 07/11/2024 3:36 PM ASTROBIOLOGIST Kehinde Trejo MD LAB BLOOD ORDERABLES Queenie l Result Performing Organization Address [facility] de Phone Number [facility] [address] [place] [address] * Mononucleosis screen (07/11/2024 10:48 AM ASTROBIOLOGIST) Pathologist [facility] [place] Screen Negative Negative Comment: Interpretive Data Heterophile [...] on 2022. Blood 07/11/2024 10:4 8 AM ASTROBIOLOGIST 07/11/2024 3:36 PM ASTROBIOLOGIST Kehinde Trejo MD LAB BLOOD ORDERABLES Queenie l Result Performing Organization Address [facility] Co de Phone Number [facility] [address] [facility] [employer] [place], [place] [id number] * Comprehensive metabolic panel (07/11/2024 10:48 AM ASTROBIOLOGIST) Pathologist [facility] Sodium 137 135 - 145 mmol/L Potassium, [...] CERNER CH Blood 07/11/2024 10:4 8 AM ASTROBIOLOGIST 07/11/2024 3:36 PM ASTROBIOLOGIST Kehinde Trejo MD LAB BLOOD ORDERABLES Queenie pruett Result [facility] [address] Department [place] [address] * XR Chest Pa Lateral 2 Views (07/07/2024 12:09 PM ASTROBIOLOGIST) Anatomical Region Laterality Modality Body, Chest N/A Digital Radiogra phy 07/07/2024 12:5 5 PM ASTROBIOLOGIST Narrative 07/07/2024 12:55 PM ASTROBIOLOGIST EXAM DESCRIPTION: XR CHEST PA LATERAL 2 [...] Winston Currie M.D. AM T: Report ID: [id number] Reading Location: [id number] Procedure Note Winston Currie MD - 07/07/2024 [...] Winston Currie M.D. AM T: Report ID: [id number] Reading Location: [id number] Lizz Cummings NP IMG XR PROCEDURES Final Result * Urine culture Urine, clean voided (07/06/2024 5:02 PM ASTROBIOLOGIST) Report Final Report: Less than 100,000 colonies/mL (clinically insignificant growth based on current clinical standards) Comment:Testing performed by : [facility], [address] [facility], [place]., [address] Organism (CLINICALLY INSIGNIFICANT GROWTH CERNER Urine, clean voided 07/06/2024 5:02 PM ASTROBIOLOGIST 07/07/2024 12:30 AM ASTROBIOLOGIST Narrative SHARONDA BOSS - 07/08/2024 6:35 AM ASTROBIOLOGIST Testing performed by [facility] Microbiology Laboratory ([phone]) us Lizz Cummings NP LAB MICROBIOLOGY - GENERAL ORDE RABLES Final Result Performing Organization Address City/[facility]/ZIP Co de Phone Number SHARONDA [address] Department [place] [address] * (ABNORMAL) POCT urinalysis dipstick (07/06/2024 4:45 PM ASTROBIOLOGIST) Color, Urine, POC Yellow Clarity, ur, POC Clear Clear Glucose, ur, POC Negative Negative MG/DL Bilirubin, ur, POC Negative Negative, Small, Moderate, Large Ketones, ur, POC Negative Negative Specific [place], POC 1.015 1.003 - 1.030 Blood, ur, POC Hemolyzed, trace(A) Negative pH, ur, POC 6.0 5.0 - 8.0 Protein, ur, POC Negative Negative Urobilinogen, urine, POC 1.0 0.2 - 1.0 mg/dL Nitrite, ur, POC Negative Negative Leukocytes, ur, POC Small(A) Negative Lot Number [id number] Urine 07/06/2024 4:45 PM ASTROBIOLOGIST us Lizz Cummings NP POINT OF CARE TEST ORDERABLES F inal Result * POC Influenza A/B, COVID-19 antigen (07/06/2024 4:26 PM ASTROBIOLOGIST) Influenza A Ag, POC Negative Negative [facility] Influenza B Ag, POC Negative Negative [facility] COVID-19 Ag POC Presumptive Negative Presumptive Negative, Invalid [facility] Nasal 07/06/2024 4:26 PM ASTROBIOLOGIST Lizz Cummings NP POINT OF CARE TEST ORDERABLES F inal Result [facility] [address] [place] [address], [facility] from Last 3 Months Insurance CIGNA [facility] [place] Care Teams Card Hanger Relationship Specialty Start Date End Date Kehinde Trejo MD [address] [place] [address] PCP - General Family Medicine 04/23/21 Rickey Frias MD [address] [place] [address] Family Medicine 08/08/20
--- OUTSIDE RECORDS SUMMARY | 2024-09-08 10:35 | XMS_ITS | Encounter Summary ---
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
--- OUTSIDE RECORDS SUMMARY | 2024-09-08 10:35 | XMS_ITS | Clinical Summary ---
Author Organization [facility] Address [address] [place] [address] Care Team Providers Care Surface Grinder Tender Name Role Phone Kristin Amin MD Primary Care Provider [phone] , Generic Conversion Unavailable Jayden Murcia MD Unavailable Allergies No known active allergies Medications VIENVA [...] age to complete this topic Care Teams Surface Grinder Tender Relationship Specialty [place] [address] [place] [address] PCP - General FAMILY PRACTICE 12/07/16 , Cherrie Stoll MD 12/07/16 Jayden Napoles MD [address] [place] [address] [place] Ignition Expert CARDIOVASCULAR DISEASE 12/07/16
[2024-09-08 13:55] LABS: Beta HCG Quantitative 529.64 mIU/ML
== END 2024-09-08 10:27 | disposition home or self-care (01) ==
LOC: ANHGOSHLAB 10:27
PROVIDERS: PCP Obstetrics & Gynecology; Visit Provider Obstetrics & Gynecology
DX: O20.0 Threatened abortion (principal); Z3A.00 Weeks of gestation of pregnancy not specified
CPT/HCPCS: 36415; 84702

== ENCOUNTER 2024-09-29 09:32 | Outpatient (CLI) | payer BC, SELFPAY ==
--- OUTSIDE RECORDS SUMMARY | 2024-09-29 09:40 | XMS_ITS | Referral Summary ---
Author Organization [facility] 163 [facility] Address [address] [place] [address] Care Team Providers Care Job Honer Name Role Phone Rickey Frias MD Unavailable [phone] Kehinde Trejo MD Primary Care Provider [phone] Encounters Date Type Department Care Team Description 09/04/2024 Results Follow-Up [facility] Medical [facility] Convenient Care at [address] [phone] Olga Hebert NP 09/03/2024 12:55 PM CDT - 09/03/2024 11:59 PM CDT Hospital Encounter [address] [address] Sore throat Discharge Disposition: Discharge to home or self care 09/03/2024 11:00 AM CDT Office Visit [facility] Convenient Care at [address] [phone] Olga Hebert, ARI Sore throat (Primary Dx) 07/23/2024 Results Follow-Up [facility] [address] [place] [address] Kehinde Trejo MD 07/11/2024 10:48 AM BIOFUELS PRODUCTION MANAGER - 07/11/2024 11:59 PM BIOFUELS PRODUCTION MANAGER Hospital Encounter [address] [address] Recurrent fever Discharge Disposition: Discharge to home or self care 07/11/2024 10:45 AM BIOFUELS PRODUCTION MANAGER Lab [facility] Outpatient Lab at [address] [address] Recurrent fever (Primary Dx) 07/11/2024 10:00 AM BIOFUELS PRODUCTION MANAGER Office Visit [facility] Primary Care at [address] [phone] Kehinde Trejo MD Recurrent fever (Primary Dx) 07/07/2024 12:15 PM BIOFUELS PRODUCTION MANAGER Ancillary Procedure [facility] Imaging at [address] [phone] 07/06/2024 5:02 PM BIOFUELS PRODUCTION MANAGER - 07/06/2024 11:59 PM BIOFUELS PRODUCTION MANAGER Hospital Encounter [place] [id number] Acute cystitis with hematuria Discharge Disposition: Discharge to home or self care 07/06/2024 4:00 PM BIOFUELS PRODUCTION MANAGER Office Visit [facility] Convenient Care at [address] [phone] Lizz Cummings NP Fever, unspecified fever cause [...] 07/23/2024 Assessment & Plan (07/23/2024 10:04 AM BIOFUELS PRODUCTION MANAGER): Terat imepricially with cefidinri and medrol. Reivewed [...] healthier, we can set up appointment with field auditor/statistical typist. 3. Have an active lifestyle, strive for [...] on file Legal Sex Female 11:32 AM BIOFUELS PRODUCTION MANAGER Gender Identity Not on file Sexual Orientation [...] Sore throat EGFR Routine 07/11/2024 10:48 AM BIOFUELS PRODUCTION MANAGER Recurrent fever DIFFERENTIAL AUTO Routine 07/11/2024 10: 48 AM BIOFUELS PRODUCTION MANAGER Recurrent fever CBC WITH AUTO DIFFERENTIAL Routine 07/11/2024 10:48 AM BIOFUELS PRODUCTION MANAGER Recurrent fever MONONUCLEOSIS SCREEN Routine 07/11/2024 10:48 AM BIOFUELS PRODUCTION MANAGER Recurrent fever COMPREHENSIVE METABOLIC PANEL Routine 07/11/2024 10:48 AM BIOFUELS PRODUCTION MANAGER Recurrent fever XR CHEST PA LATERAL 2 VIEWS Schedule NEGIN, Read NEGIN (Appt Today, Awaiting Results) 07/07/2024 12:09 PM BIOFUELS PRODUCTION MANAGER Fever, unspecified fever cause URINE CULTURE Routine 07/06/2024 5:02 PM BIOFUELS PRODUCTION MANAGER Acute cystitis with hematuria POCT URINALYSIS DIPSTICK Routine 07/06/2024 4:45 PM BIOFUELS PRODUCTION MANAGER Acute cystitis with hematuria POC INFLUENZA A/B, COVID-19 ANTIGEN Routine 07/06/2024 4:26 PM BIOFUELS PRODUCTION MANAGER Fever, unspecified fever cause Acute viral syndrome from Last 3 Months Results * POCT rapid strep A (09/03/2024 11:20 AM CDT) Rapid Strep A, POC Negative Negative Swab 09/03/2024 11:2 0 AM CDT Olga Hebert NP POINT OF CARE TEST ORDERAB LES Final Result * Throat culture Throat (09/03/2024 8:00 AM CDT) Report Final Report: No growth of pathogens. Comment:Testing performed by : [facility], [address] [facility], [place]., [address] Throat 09/03/2024 8:00 AM CDT 09/03/2024 4:17 PM CDT Narrative SHARONDA BOSS - 09/04/2024 11:40 AM CDT Testing performed by [facility] Microbiology Laboratory ([phone]). Olga Hebert NP LAB MICROBIOLOGY - GENERAL ORDERABLES Final Result Performing Organization Address City/[facility]/ZIP Co de Phone Number SHARONDA BOSS [address] Department [place] [address] * eGFR (07/11/2024 10:48 AM BIOFUELS PRODUCTION MANAGER) Pathologist [facility] eGFR >90 >=60 mL/min/1. 73 m2 Comment: [...] reviewed 2021. Blood 07/11/2024 10:4 8 AM BIOFUELS PRODUCTION MANAGER 07/11/2024 4:28 PM BIOFUELS PRODUCTION MANAGER Kehinde Trejo MD LAB BLOOD ORDERABLES Queenie l Result Performing Organization Address City/[facility]/ZIP Co de Phone Number SHARONDA BOSS [address] Department [place] [address] * (ABNORMAL) Differential, auto (07/11/2024 10:48 AM BIOFUELS PRODUCTION MANAGER) Neutrophil abs 8.2(H) 1.5 - 6.5 K/cumm Imm gran abs 0.1 0.0 - 0.1 K/cumm [facility] Lymphocyte abs 1.4 0.8 - 3.3 K[facility]umm [facility] Monocyte abs 0.8 0.2 - 0.8 K/cumm [facility] Eosinophil abs 0.1 0.0 - 0.5 K/cumm [facility] Basophil abs 0.0 0.0 - 0.1 K/cumm [facility] Neutrophil pct 77.0 % [facility] Comment: [...] revised on 2017. Monocyte pct 7.9 % [facility] Comment: Interpretive Data Percent cell [...] on 2017. Blood 07/11/2024 10:4 8 AM BIOFUELS PRODUCTION MANAGER 07/11/2024 3:36 PM BIOFUELS PRODUCTION MANAGER Kehinde Trejo MD LAB BLOOD ORDERABLES Queenie flynn Result SHARONDA BOSS [address] Department [place] [address] * (ABNORMAL) CBC with auto differential (07/11/2024 10:48 AM BIOFUELS PRODUCTION MANAGER) [facility] WBC 10.6(H) 3.8 - 9.9 K/cumm Hgb 12.6 11.9 - 15.5 g/dL [facility] Hct 38.6 35.6 - 45.5 % [facility] Plt 333 150 - 400 K/cumm [facility] MPV 10.0 9.1 - 12.3 fL [facility] RBC 4.45 3.90 - 5.20 M/cumm [facility] MCV 86.7 81.3 - 96.4 fL [facility] MCH 28.3 27.1 - 33.3 pg [facility] MCHC 32.6 32.3 - 35.7 g/dL [facility] RDW CV 13.7 11.1 - 14.9 % [facility] RDW SD 43.1 35.7 - 48.1 fL [facility] NRBC abs 0.00 0.00 - 0.01 K/cumm [facility] Blood 07/11/2024 10:4 8 AM BIOFUELS PRODUCTION MANAGER 07/11/2024 3:36 PM BIOFUELS PRODUCTION MANAGER Kehinde Trejo MD LAB BLOOD ORDERABLES Queenie l Result Performing Organization Address [facility]/State/[facility] Co de Phone Number SHARONDA BOSS [address] Department [place] [address] * Mononucleosis screen (07/11/2024 10:48 AM BIOFUELS PRODUCTION MANAGER) [facility] [place] Screen Negative Negative Comment: Interpretive Data Heterophile [...] on 2022. Blood 07/11/2024 10:4 8 AM BIOFUELS PRODUCTION MANAGER 07/11/2024 3:36 PM BIOFUELS PRODUCTION MANAGER Kehinde Trejo MD LAB BLOOD [place] [address] [address] Department [place] [address] * Comprehensive metabolic panel (07/11/2024 10:48 AM BIOFUELS PRODUCTION MANAGER) Sodium 137 135 - 145 mmol/L Potassium, [...] [facility] Blood 07/11/2024 10:4 8 AM BIOFUELS PRODUCTION MANAGER 07/11/2024 3:36 PM BIOFUELS PRODUCTION MANAGER Kehinde Trejo MD LAB BLOOD ORDERAB[place] [address] [facility] Department [place] [address] * XR Chest Pa Lateral 2 Views (07/07/2024 12:09 PM BIOFUELS PRODUCTION MANAGER) Anatomical Region Laterality Modality Body, Chest N/A Digital Radiogra phy 07/07/2024 12:5 5 PM BIOFUELS PRODUCTION MANAGER Narrative 07/07/2024 12:55 PM BIOFUELS PRODUCTION MANAGER EXAM DESCRIPTION: XR CHEST PA LATERAL 2 [...] Winston Currie M.D. AM T: Report ID: [id number] Reading Location: [id number] Procedure Note Winston Currie MD - 07/07/2024 [...] Winston Currie M.D. AM T: Report ID: [id number] Reading Location: [place] [address] Lizz Cummings NP IMG XR PROCEDURES Final Result * Urine culture Urine, clean voided (07/06/2024 5:02 PM BIOFUELS PRODUCTION MANAGER) Report Final Report: Less than 100,000 colonies/mL (clinically insignificant growth based on current clinical standards) Comment:Testing performed by : [facility], [address] [place]., [address] Organism (CLINICALLY INSIGNIFICANT GROWTH [facility] Urine, clean voided 07/06/2024 5:02 PM BIOFUELS PRODUCTION MANAGER 07/07/2024 12:30 AM BIOFUELS PRODUCTION MANAGER Narrative SHARONDA - 07/08/2024 6:35 AM BIOFUELS PRODUCTION MANAGER Testing performed by [facility] Microbiology Laboratory ([phone]) Lizz Cummings NP LAB MICROBIOLOGY - [facility] Final Result [facility] [address] Department [place] [address] * (ABNORMAL) POCT urinalysis dipstick (07/06/2024 4:45 PM BIOFUELS PRODUCTION MANAGER) Color, Urine, POC Yellow Clarity, ur, POC Clear Clear Glucose, ur, POC Negative Negative MG/DL Bilirubin, ur, POC Negative Negative, Small, Moderate, Large Ketones, ur, POC Negative Negative Specific [place], POC 1.015 1.003 - 1.030 Blood, ur, POC Hemolyzed, trace(A) Negative pH, ur, POC 6.0 5.0 - 8.0 Protein, ur, POC Negative Negative Urobilinogen, urine, POC 1.0 0.2 - 1.0 mg/dL Nitrite, ur, POC Negative Negative Leukocytes, ur, POC Small(A) Negative Lot Number [id number] Urine 07/06/2024 4:45 PM BIOFUELS PRODUCTION MANAGER Lizz Cummings NP POINT OF CARE TEST ORDERABLES F inal Result * POC Influenza A/B, COVID-19 antigen (07/06/2024 4:26 PM BIOFUELS PRODUCTION MANAGER) Influenza A Ag, POC Negative Negative [facility] CC EDW Influenza B Ag, POC Negative Negative [facility] CC EDW COVID-19 Ag POC Presumptive Negative Presumptive Negative, Invalid [facility] CC EDW Nasal 07/06/2024 4:2 6 PM BIOFUELS PRODUCTION MANAGER Lizz Cummings NP POINT OF CARE TEST ORDERABLES F inal Result [facility] [place] [address], [facility] from Last 3 Months Insurance CIGNA CIGNA [facility] [place] Care Teams Job Honer Relationship Specialty Start Date End Date Kehinde Trejo MD [address] [place] [address] PCP - General Family Medicine 04/23/21 Rickey Frias MD [address] [place] [address] Family Medicine 08/08/20
--- OUTSIDE RECORDS SUMMARY | 2024-09-29 09:40 | XMS_ITS | Clinical Summary ---
Author Organization [facility] Address [address] [place] [address] Care Team Providers Care Manager Of Business Operations Name Role Phone Lanie De León MD Unavailable [phone] Source Comments [facility],non-owned Affiliates and Associated Physician Practices is amultiple site organization consisting of ambulatory clinics and hospital sitesin [place], [place], [place] and [place]. This disclosure is being madepursuant to the Care Everywhere program and may not contain all information available regarding this patient. Last updated 18.[facility] Allergies No known active allergies Medications * [...] on file Legal Sex Female 1:55 PM PLANT CONTROL AIDE Gender Identity Not on file Sexual Orientation Not on file Last Filed Vital Signs Vital Sign Reading Time Taken Comments Blood Pressure 110/62 05/23/2018 12:00 PM PLANT CONTROL AIDE Pulse 61 05/23/2018 12:00 PM PLANT CONTROL AIDE Temperature 37 C (98.6 F) 05/23/2018 12:00 PM PLANT CONTROL AIDE Respiratory Rate - - Oxygen Saturation 98% 05/23/2018 12:00 PM PLANT CONTROL AIDE Inhaled Oxygen Concentration - - Weight 59 kg (130 lb) 05/23/2018 12:00 PM PLANT CONTROL AIDE Height 157.5 cm (5' 2 ) 05/23/2018 12:00 PM PLANT CONTROL AIDE Body Mass Index 23.78 05/23/2018 12:00 PM PLANT CONTROL AIDE Plan of Treatment Health Maintenance Due Date [...] topic Insurance [employer] CIGNA Care Teams Manager Of Business Operations Relationship Specialty Start [place] [address] [address] [place] [id number] Video Journalist Obstetrics and Gynecology 08/09/12
--- OUTSIDE RECORDS SUMMARY | 2024-09-29 09:40 | XMS_ITS | Clinical Summary ---
Author Organization [facility] Address [address] [place] [address] Care Team Providers Care Customer Development Manager Name Role Phone Kristin Amin MD Primary Care Provider [phone] , Generic Conversion Unavailable Jayden Murcia MD Unavailable [phone] Allergies No known active allergies Medications [...] age to complete this topic Care Teams Customer Development Manager Relationship Specialty [place] [address] [place] [address] PCP - General FAMILY PRACTICE 12/07/16 , Cherrie Stoll MD 12/07/16 Jayden Napoles MD [address] [place] [address] Woodland Brokerage Manager CARDIOVASCULAR DISEASE 12/07/16
--- OUTSIDE RECORDS SUMMARY | 2024-09-29 09:40 | XMS_ITS | Clinical Summary ---
Author Organization [facility] [place] [facility] Address [address] [place] [address] Care Team Providers Care Counter Top Maker Name Role Phone Rickey Frias MD Unavailable [phone] Kehinde Trejo MD Primary Care Provider [phone] Allergies No known active allergies Medications cefdinir (OMNICEF) 300 mg capsule Take 1 capsule (300 mg total) by mouth 2 (two) times a day 20 capsule Active Additional Information Patient not taking.Reported on 09/03/2024 Active Problems Problem Noted Date Diagnosed Date Recurrent fever 07/23/2024 Assessment & Plan (07/23/2024 10:04 AM FINANCIAL SYSTEMS DIRECTOR): Terat imepricially with cefidinri and medrol. Reivewed [...] healthier, we can set up appointment with patent attorney/fresh food manager. 3. Have an active lifestyle, strive for [...] Department Care Team Description 09/04/2024 Results Follow-Up [facility]ient [facility] at [address] [address] Olga Hebert NP 09/03/2024 12:55 PM CDT - 09/03/2024 11:59 PM CDT Hospital Encounter [address] [address] Sore throat Discharge Disposition: Discharge to home or self care 09/03/2024 11:00 AM CDT Office Visit [facility] at [address] [address] Olag Hebert NP Sore throat (Primary Dx) 07/23/2024 Results [facility]Up [facility] [address] [phone] Kehinde Trejo MD 07/11/2024 10:48 AM FINANCIAL SYSTEMS DIRECTOR - 07/11/2024 11:59 PM FINANCIAL SYSTEMS DIRECTOR Hospital Encounter [address] [address] Recurrent fever Discharge Disposition: Discharge to home or self care 07/11/2024 10:45 AM FINANCIAL SYSTEMS DIRECTOR Lab [facility] Outpatient Lab at [address] [phone] Recurrent fever (Primary Dx) 07/11/2024 10:00 AM FINANCIAL SYSTEMS DIRECTOR Office Visit [facility] Primary Care at [address] [phone] Kehinde Trejo MD Recurrent fever (Primary Dx) 07/07/2024 12:15 PM FINANCIAL SYSTEMS DIRECTOR Ancillary Procedure [facility] Imaging at [address] [address] 07/06/2024 5:02 PM FINANCIAL SYSTEMS DIRECTOR - 07/06/2024 11:59 PM FINANCIAL SYSTEMS DIRECTOR Hospital Encounter [address] [address] Acute cystitis with hematuria Discharge Disposition: Discharge to home or self care 07/06/2024 4:00 PM FINANCIAL SYSTEMS DIRECTOR Office Visit [facility] Medical [facility] Care at [address] [address] Lizz Cummings NP Fever, unspecified fever cause [...] on file Legal Sex Female 11:32 AM FINANCIAL SYSTEMS DIRECTOR Gender Identity Not on file Sexual Orientation [...] Sore throat EGFR Routine 07/11/2024 10:48 AM FINANCIAL SYSTEMS DIRECTOR Recurrent fever DIFFERENTIAL AUTO Routine 07/11/2024 10: 48 AM FINANCIAL SYSTEMS DIRECTOR Recurrent fever CBC WITH AUTO DIFFERENTIAL Routine 07/11/2024 10:48 AM FINANCIAL SYSTEMS DIRECTOR Recurrent fever MONONUCLEOSIS SCREEN Routine 07/11/2024 10:48 AM FINANCIAL SYSTEMS DIRECTOR Recurrent fever COMPREHENSIVE METABOLIC PANEL Routine 07/11/2024 10:48 AM FINANCIAL SYSTEMS DIRECTOR Recurrent fever XR CHEST PA LATERAL 2 VIEWS Schedule NEGIN, Read NEGIN (Appt Today, Awaiting Results) 07/07/2024 12:09 PM FINANCIAL SYSTEMS DIRECTOR Fever, unspecified fever cause URINE CULTURE Routine 07/06/2024 5:02 PM FINANCIAL SYSTEMS DIRECTOR Acute cystitis with hematuria POCT URINALYSIS DIPSTICK Routine 07/06/2024 4:45 PM FINANCIAL SYSTEMS DIRECTOR Acute cystitis with hematuria POC INFLUENZA A/B, COVID-19 ANTIGEN Routine 07/06/2024 4:26 PM FINANCIAL SYSTEMS DIRECTOR Fever, unspecified fever cause Acute viral syndrome from Last 3 Months Results * POCT rapid strep A (09/03/2024 11:20 AM CDT) Rapid Strep A, POC Negative Negative Swab 09/03/2024 11:2 0 AM CDT Olga Hebert NP POINT OF CARE TEST ORDERAB LES Final Result * Throat culture Throat (09/03/2024 8:00 AM CDT) Report Final Report: No growth of pathogens. Comment:Testing performed by : [facility], [address] [place]., [address] Throat 09/03/2024 8:00 AM CDT 09/03/2024 4:17 PM CDT Narrative SHARONDA Bobo 09/04/2024 11:40 AM CDT Testing performed by [facility] Microbiology Laboratory ([phone]). Olga Hebert NP LAB MICROBIOLOGY - GENERAL ORDERABLES Final Result SHARONDA BOSS [address] [place] [address] * eGFR (07/11/2024 10:48 AM FINANCIAL SYSTEMS DIRECTOR) Pathologist [facility] eGFR >90 >=60 mL/min/1. 73 m2 Comment: [...] reviewed 2021. Blood 07/11/2024 10:4 8 AM FINANCIAL SYSTEMS DIRECTOR 07/11/2024 4:28 PM FINANCIAL SYSTEMS DIRECTOR Kehinde Trejo MD LAB BLOOD ORDERABLES Queenie pruett Result [facility] [address] [address] [place] [address] * (ABNORMAL) Differential, auto (07/11/2024 10:48 AM FINANCIAL SYSTEMS DIRECTOR) Pathologist [facility] Neutrophil abs 8.2(H) 1.5 - 6.5 K/cumm Imm gran abs 0.1 0.0 - 0.1 K/cumm [facility] Lymphocyte abs 1.4 0.8 - 3.3 K/cumm [facility] Monocyte abs 0.8 0.2 - 0.8 K/cumm [facility] Eosinophil abs 0.1 0.0 - 0.5 K/cumm [facility] Basophil abs 0.0 0.0 - 0.1 K/cumm [facility] Neutrophil pct 77.0 % [facility] Comment: Interpretive Data Percent cell count reference [...] on 2017. Blood 07/11/2024 10:4 8 AM FINANCIAL SYSTEMS DIRECTOR 07/11/2024 3:36 PM FINANCIAL SYSTEMS DIRECTOR Kehinde Trejo MD LAB BLOOD ORDERABLES Queenie l Result [facility] [address] [address] [place] [address] * (ABNORMAL) CBC with auto differential (07/11/2024 10:48 AM FINANCIAL SYSTEMS DIRECTOR) WBC 10.6(H) 3.8 - 9.9 K/cumm Hgb [...] [facility] Blood 07/11/2024 10:4 8 AM FINANCIAL SYSTEMS DIRECTOR 07/11/2024 3:36 PM FINANCIAL SYSTEMS DIRECTOR Kehinde Trejo MD LAB BLOOD ORDERABLES Queenie l Result Performing Organization Address [facility] de Phone Number [facility] [address] [place] [address] * Mononucleosis screen (07/11/2024 10:48 AM FINANCIAL SYSTEMS DIRECTOR) Pathologist [facility] Mayes Screen Negative Negative Comment: Interpretive Data Heterophile [...] on 2022. Blood 07/11/2024 10:4 8 AM FINANCIAL SYSTEMS DIRECTOR 07/11/2024 3:36 PM FINANCIAL SYSTEMS DIRECTOR Kehinde Trejo MD LAB BLOOD ORDERABLES Queenie l Result Performing Organization Address [facility] Co de Phone Number [facility] [address] [address] [facility] [address] [place], [place] [id number] * Comprehensive metabolic panel (07/11/2024 10:48 AM FINANCIAL SYSTEMS DIRECTOR) Pathologist [facility] Sodium 137 135 - 145 mmol/L Potassium, [...] [facility] Blood 07/11/2024 10:4 8 AM FINANCIAL SYSTEMS DIRECTOR 07/11/2024 3:36 PM FINANCIAL SYSTEMS DIRECTOR Kehinde Trejo MD LAB BLOOD ORDERABLES Queenie pruett Result [facility] [address] [address] [place] [address] * XR Chest Pa Lateral 2 Views (07/07/2024 12:09 PM FINANCIAL SYSTEMS DIRECTOR) Anatomical Region Laterality Modality Body, Chest N/A Digital Radiogra phy 07/07/2024 12:5 5 PM FINANCIAL SYSTEMS DIRECTOR Narrative 07/07/2024 12:55 PM FINANCIAL SYSTEMS DIRECTOR EXAM DESCRIPTION: XR CHEST PA LATERAL 2 [...] Winston Currie M.D. AM T: Report ID: [id number] Reading Location: [id number] Procedure Note Winston Currie MD - 07/07/2024 [...] Winston Currie M.D. AM T: Report ID: [id number] Reading Location: [id number] Lizz Cummings NP IMG XR PROCEDURES Final Result * Urine culture Urine, clean voided (07/06/2024 5:02 PM FINANCIAL SYSTEMS DIRECTOR) Report Final Report: Less than 100,000 colonies/mL (clinically insignificant growth based on current clinical standards) Comment:Testing performed by : [facility], [address] [facility], [place]., [address] Organism (CLINICALLY INSIGNIFICANT GROWTH CERNER Urine, clean voided 07/06/2024 5:02 PM FINANCIAL SYSTEMS DIRECTOR 07/07/2024 12:30 AM FINANCIAL SYSTEMS DIRECTOR Narrative SHARONDA BOSS - 07/08/2024 6:35 AM FINANCIAL SYSTEMS DIRECTOR Testing performed by [facility] Microbiology Laboratory ([phone]) us Lizz Cummings NP LAB MICROBIOLOGY - GENERAL ORDE RABLES Final Result Performing Organization Address City/[facility]/ZIP Co de Phone Number SHARONDA [address] [address] [place] [address] * (ABNORMAL) POCT urinalysis dipstick (07/06/2024 4:45 PM FINANCIAL SYSTEMS DIRECTOR) Color, Urine, POC Yellow Clarity, ur, POC Clear Clear Glucose, ur, POC Negative Negative MG/DL Bilirubin, ur, POC Negative Negative, Small, Moderate, Large Ketones, ur, POC Negative Negative Specific [place], POC 1.015 1.003 - 1.030 Blood, ur, POC Hemolyzed, trace(A) Negative pH, ur, POC 6.0 5.0 - 8.0 Protein, ur, POC Negative Negative Urobilinogen, urine, POC 1.0 0.2 - 1.0 mg/dL Nitrite, ur, POC Negative Negative Leukocytes, ur, POC Small(A) Negative Lot Number [id number] Urine 07/06/2024 4:45 PM FINANCIAL SYSTEMS DIRECTOR us Lizz Cummings NP POINT OF CARE TEST ORDERABLES F inal Result * POC Influenza A/B, COVID-19 antigen (07/06/2024 4:26 PM FINANCIAL SYSTEMS DIRECTOR) Influenza A Ag, POC Negative Negative [facility] Influenza B Ag, POC Negative Negative [facility] COVID-19 Ag POC Presumptive Negative Presumptive Negative, Invalid [facility] Nasal 07/06/2024 4:26 PM FINANCIAL SYSTEMS DIRECTOR Lizz Cummings NP POINT OF CARE TEST ORDERABLES F inal Result [facility] [address] [place] [address], [facility] from Last 3 Months Insurance CIGNA FORMERLY [facility] [employer] [place] Care Teams Counter Top Maker Relationship Specialty Start Date End Date Kehinde Trejo MD [address] [place] [address] PCP - General Family Medicine 04/23/21 Rickey Frias MD [address] [place] [address] Family Medicine 08/08/20
--- OUTSIDE RECORDS SUMMARY | 2024-09-29 09:40 | XMS_ITS | Encounter Summary ---
Author Organization [facility] Healthcare Address [address] [place] [address] Care Team Providers Care Trimmer Operator Three Knife Name Role Phone Rickey Frias MD Unavailable [phone] Kehinde Trejo MD Primary Care Provider [phone] Encounter Details Date Type Department Care Team (Late st Contact Info) Description 09/04/2024 Results Follow-Up [facility] Medical [facility] Convenient Care at [address] [phone] Olga Hebert NP 2 [facility] [address] [place] [address] Social History Tobacco Use Types [...] on file Legal Sex Female 11:32 AM PROGRAM TRAINER Gender Identity Not on file Sexual Orientation Not on file documented as of this encounter Plan of Treatment Not on file documented as of this encounter Visit Diagnoses Not on filedocumented in this encounter Care Teams Trimmer Operator Three Knife Relationship Specialty Start Date End Date [place] [address] [address] [place] [address] PCP - General Family Medicine 04/23/21 Rickey Frias MD [address] [place] [address] Family Medicine 08/08/20 documented as of this encounter
[2024-09-29 20:48] LABS: Beta HCG Quantitative 24.19 mIU/ML
== END 2024-09-29 09:33 | disposition home or self-care (01) ==
LOC: ANHGOSHLAB 09:38
PROVIDERS: PCP Obstetrics & Gynecology; Visit Provider Obstetrics & Gynecology
DX: O20.0 Threatened abortion (principal); Z3A.00 Weeks of gestation of pregnancy not specified
CPT/HCPCS: 36415; 84702

== ENCOUNTER 2024-10-06 10:37 | Outpatient (CLI) | payer BC, SELFPAY ==
--- OUTSIDE RECORDS SUMMARY | 2024-10-06 10:41 | XMS_ITS | Clinical Summary ---
Author Organization [facility] Address [address] [place] [address] Care Team Providers Care Executive Director Name Role Phone Kristin Amin MD Primary Care Provider [phone] , Generic Conversion Unavailable Jayden Murcia MD Unavailable [phone] Allergies No known active allergies Medications [...] age to complete this topic Care Teams Executive Director Relationship Specialty [place] [address] [place] [address] PCP - General FAMILY PRACTICE 12/07/16 , Cherrie Stoll MD 12/07/16 Jayden Napoles MD [address] [place] [address] [employer] CARDIOVASCULAR DISEASE 12/07/16
--- OUTSIDE RECORDS SUMMARY | 2024-10-06 10:41 | XMS_ITS | Clinical Summary ---
Author Organization [facility] [place] 163 [facility] Address [address] [place] [address] Care Team Providers Care Technology Support Analyst Name Role Phone Rickey Frias MD Unavailable [phone] Kehinde Trejo MD Primary Care Provider [phone] Allergies No known active allergies Medications cefdinir (OMNICEF) 300 mg capsule Take 1 capsule (300 mg total) by mouth 2 (two) times a day 20 capsule Active Additional Information Patient not taking.Reported on 09/03/2024 Active Problems Problem Noted Date Diagnosed Date Recurrent fever 07/23/2024 Assessment & Plan (07/23/2024 10:04 AM CLUB FORMER): Terat imepricially with cefidinri and medrol. Reivewed [...] healthier, we can set up appointment with medtronics technician/pediatric physician. 3. Have an active lifestyle, strive for [...] Department Care Team Description 09/04/2024 Results Follow-Up [facility] Medical Group Convenient Care at [address] [address] Olga Hebert NP 09/03/2024 12:55 PM CDT - 09/03/2024 11:59 PM CDT Hospital Encounter [address] [address] Sore throat Discharge Disposition: Discharge to home or self care 09/03/2024 11:00 AM CDT Office Visit [facility] Medical [facility] Convenient Care at [address] [phone] Olga Hebert NP Sore throat (Primary Dx) 07/23/2024 Results [facility]Up [facility] [address] [phone] Kehinde Trejo MD 07/11/2024 10:48 AM CLUB FORMER - 07/11/2024 11:59 PM CLUB FORMER Hospital Encounter [address] [address] Recurrent fever Discharge Disposition: Discharge to home or self care 07/11/2024 10:45 AM CLUB FORMER Lab [facility] Medical Group Outpatient Lab at [address] [phone] Recurrent fever (Primary Dx) 07/11/2024 10:00 AM CLUB FORMER Office Visit [facility] Medical Group Primary Care at [address] [phone] Kehinde Trejo MD Recurrent fever (Primary Dx) from Last 3 Months Immunizations Immunization Administration [...] 10 Hx Other Medical lisa oliverio jonathan 2012 Hx Other Medical mitral valve pr olapse; [...] on file Legal Sex Female 11:32 AM CLUB FORMER Gender Identity Not on file Sexual Orientation [...] Sore throat EGFR Routine 07/11/2024 10:48 AM CLUB FORMER Recurrent fever DIFFERENTIAL AUTO Routine 07/11/2024 10: 48 AM CLUB FORMER Recurrent fever CBC WITH AUTO DIFFERENTIAL Routine 07/11/2024 10:48 AM CLUB FORMER Recurrent fever MONONUCLEOSIS SCREEN Routine 07/11/2024 10:48 AM CLUB FORMER Recurrent fever COMPREHENSIVE METABOLIC PANEL Routine 07/11/2024 10:48 AM CLUB FORMER Recurrent fever from Last 3 Months Results * POCT rapid strep A (09/03/2024 11:20 AM CDT) Rapid Strep A, POC Negative Negative Swab 09/03/2024 11:2 0 AM CDT Olga Hebert NP POINT OF CARE TEST ORDERAB LES Final Result * Throat culture Throat (09/03/2024 8:00 AM CDT) Report Final Report: No growth of pathogens. Comment:Testing performed by : [facility], [address] [facility], [place]., [address] Throat 09/03/2024 8:00 AM CDT 09/03/2024 4:17 PM CDT Narrative SHARONDA Bobo 09/04/2024 11:40 AM CDT Testing performed by [facility] Microbiology Laboratory ([phone]). Olga Hebert NP LAB MICROBIOLOGY - GENERAL ORDERABLES Final Result Performing Organization Address City/[facility]/ZIP Co de Phone Number SHARONDA GERA [address] [address], [place] [address] * eGFR (07/11/2024 10:48 AM CLUB FORMER) eGFR >90 >=60 mL/min/1. 73 m2 Comment: [...] reviewed 2021. Blood 07/11/2024 10:4 8 AM CLUB FORMER 07/11/2024 4:28 PM CLUB FORMER Kehinde Trejo MD LAB BLOOD ORDERABLES Queenie l Result Performing Organization Address City/[facility]/ZIP Co de Phone Number VICKIEMILAGROS [address] [address] Department [address], [place] [address] * (ABNORMAL) Differential, auto (07/11/2024 10:48 AM CLUB FORMER) Neutrophil abs 8.2(H) 1.5 - 6.5 K/cumm Imm gran abs 0.1 0.0 - 0.1 K/cumm [facility] Lymphocyte abs 1.4 0.8 - 3.3 K/cumm [facility] Monocyte abs 0.8 0.2 - 0.8 K/cumm [facility] Eosinophil abs 0.1 0.0 - 0.5 K/cumm [facility] Basophil abs 0.0 0.0 - 0.1 K/cumm [facility] Neutrophil pct 77.0 % C[facility]ER Comment: Interpretive [...] on 2017. Blood 07/11/2024 10:4 8 AM CLUB FORMER 07/11/2024 3:36 PM CLUB FORMER Kehinde Trejo MD LAB BLOOD ORDERABLES Queenie l Result Performing Organization Address [facility] de Phone Number SHARONDA BOSS [address] [address] [place] [address] * (ABNORMAL) CBC with auto differential (07/11/2024 10:48 AM CLUB FORMER) WBC 10.6(H) 3.8 - 9.9 K/cumm Hgb 12.6 11.9 - 15.5 g/dL [facility] Hct 38.6 35.6 - 45.5 % [facility] Plt 333 150 - 400 K/cumm [facility] MPV 10.0 9.1 - 12.3 fL [facility] RBC 4.45 3.90 - 5.20 M/cumm [facility] CH MCV 86.7 81.3 - 96.4 fL [facility] MCH 28.3 27.1 - 33.3 pg [facility] MCHC 32.6 32.3 - 35.7 g/dL [facility] RDW CV 13.7 11.1 - 14.9 % [facility] RDW SD 43.1 35.7 - 48.1 fL [facility] NRBC abs 0.00 0.00 - 0.01 K/cumm [facility] CH Blood 07/11/2024 10:4 8 AM CLUB FORMER 07/11/2024 3:36 PM CLUB FORMER Kehinde Trejo MD LAB BLOOD ORDERABLES Queenie l Result Performing Organization Address [facility] Co de Phone Number SHARONDA BOSS [address] [address] [place] [address] * Mononucleosis screen (07/11/2024 10:48 AM CLUB FORMER) Pathologist [facility] Screen Negative Negative Comment: Interpretive Data Heterophile [...] on 2022. Blood 07/11/2024 10:4 8 AM CLUB FORMER 07/11/2024 3:36 PM CLUB FORMER us Kehinde Trejo MD LAB BLOOD ORDERABLES Queenie l Result [facility] [address] [address] [place] [address] * Comprehensive metabolic panel (07/11/2024 10:48 AM CLUB FORMER) Sodium 137 135 - 145 mmol/L Potassium, [...] [facility] Blood 07/11/2024 10:4 8 AM CLUB FORMER 07/11/2024 3:36 PM CLUB FORMER us Kehinde Trejo MD LAB BLOOD ORDERABLES [place] [address] [address] [place] [address] from Last 3 Months Insurance CIGNA CIGNA [facility] BLUE [place] Care Teams Technology Support Analyst Relationship Specialty Start Date End Date Kehinde Trejo MD [address] [place] [address] PCP - General Family Medicine 04/23/21 Rickey Frias MD [address] [place] [address] Family Medicine 08/08/20
--- OUTSIDE RECORDS SUMMARY | 2024-10-06 10:41 | XMS_ITS | Encounter Summary ---
Author Organization [facility] Healthcare Address [address] [place] [address] Care Team Providers Care Neon Tube Bender Name Role Phone Rickey Frias MD Unavailable [phone] Kehinde Trejo MD Primary Care Provider [phone] Encounter Details Date Type Department Care Team (Late st Contact Info) Description 09/04/2024 Results Follow-Up [facility] Medical Group Convenient Care at [address] [phone] Olga Hebert NP 2 [facility] [address] [place] [address] Social History Tobacco Use Types [...] on file Legal Sex Female 11:32 AM ROLL FORM OPERATOR Gender Identity Not on file Sexual Orientation Not on file documented as of this encounter Plan of Treatment Not on file documented as of this encounter Visit Diagnoses Not on filedocumented in this encounter Care Teams Neon Tube Bender Relationship Specialty Start Date End Date [place] [address] [address] [place] [address] PCP - General Family Medicine 04/23/21 Rickey Frias MD [address] [place] [address] Family Medicine 08/08/20 documented as of this encounter
--- OUTSIDE RECORDS SUMMARY | 2024-10-06 10:41 | XMS_ITS | Clinical Summary ---
Author Organization [facility] Address [address] [facility] [place] [address] Care Team Providers Care Commercial Diver Name Role Phone Lanie De León MD Unavailable [phone] [facility],non-owned Affiliates and Associated Physician Practices is amultiple site organization consisting of ambulatory clinics and hospital sitesin [place], [place]. This disclosure is being madepursuant to the Care Everywhere program and may not contain all information available regarding this patient. Last updated 18.[facility] Vite Allergies No known active allergies Medications * [...] on file Legal Sex Female 1:55 PM PERSONALIZED LIVING MANAGER NURSE Gender Identity Not on file Sexual Orientation Not on file Last Filed Vital Signs Vital Sign Reading Time Taken Comments Blood Pressure 110/62 05/23/2018 12:00 PM PERSONALIZED LIVING MANAGER NURSE Pulse 61 05/23/2018 12:00 PM PERSONALIZED LIVING MANAGER NURSE Temperature 37 C (98.6 F) 05/23/2018 12:00 PM PERSONALIZED LIVING MANAGER NURSE Respiratory Rate - - Oxygen Saturation 98% 05/23/2018 12:00 PM PERSONALIZED LIVING MANAGER NURSE Inhaled Oxygen Concentration - - Weight 59 kg (130 lb) 05/23/2018 12:00 PM PERSONALIZED LIVING MANAGER NURSE Height 157.5 cm (5' 2 ) 05/23/2018 12:00 PM PERSONALIZED LIVING MANAGER NURSE Body Mass Index 23.78 05/23/2018 12:00 PM PERSONALIZED LIVING MANAGER NURSE Plan of Treatment Health Maintenance Due Date [...] topic Insurance [employer]NA CIGNA Care Teams Commercial Diver Relationship Specialty Start [place] [address] [address] [place] [id number] Luster Applicator Obstetrics and Gynecology 08/09/12
--- OUTSIDE RECORDS SUMMARY | 2024-10-06 10:41 | XMS_ITS | Referral Summary ---
Author Organization [facility] 163 [facility] Address [address] [place] [address] Care Team Providers Care Hydraulic Lift Operator Name Role Phone Rickey Frias MD Unavailable [phone] Kehinde Trejo MD Primary Care Provider [phone] Encounters Date Type Department Care Team Description 09/04/2024 Results Follow-Up [facility] Medical [facility]ient [facility] at [address] [phone] Olga Hebert NP 09/03/2024 12:55 PM CDT - 09/03/2024 11:59 PM CDT Hospital Encounter [address] [address] Sore throat Discharge Disposition: Discharge to home or self care 09/03/2024 11:00 AM CDT Office Visit [facility] Con[facility]ient [facility] at [address] [phone] Olga Hebert, ARI Sore throat (Primary Dx) 07/23/2024 Results Follow-Up [facility] [address] [place] [address] Kehinde Trejo MD 07/11/2024 10:48 AM BUMP GRADER OPERATOR - 07/11/2024 11:59 PM BUMP GRADER OPERATOR Hospital Encounter [address] [address] Recurrent fever Discharge Disposition: Discharge to home or self care 07/11/2024 10:45 AM BUMP GRADER OPERATOR Lab [facility] Outpatient Lab at [address] [address] Recurrent fever (Primary Dx) 07/11/2024 10:00 AM BUMP GRADER OPERATOR Office Visit [facility] Medical Group Primary Care at [address] [phone] Kehinde Trejo MD Recurrent fever (Primary Dx) from Last 3 Months Allergies No known active allergies Medications cefdinir (OMNICEF) 300 mg capsule Take 1 capsule (300 mg total) by mouth 2 (two) times a day 20 capsule Active Additional Information Patient not taking.Reported on 09/03/2024 Active Problems Problem Noted Date Diagnosed Date Recurrent fever 07/23/2024 Assessment & Plan (07/23/2024 10:04 AM BUMP GRADER OPERATOR): Terat imepricially with cefidinri and medrol. Reivewed prior workup and imainge. WIll zamzam figueroaonsmariah. Encounter for medical examination to establish c [...] healthier, we can set up appointment with director of financial aid/personal fitness trainer. 3. Have an active lifestyle, strive for [...] Immunizations Immunization Administration Dates Next Due DTaP 07/25/1996,199 4,1992,05/03,1992 Hep B Vaccine 08/12/2001,06/10/2001,05/06/2001 Hib (HbOC) 04/04/1993,199 3,1992,03/01 IPV 07/25/1996,199 4,1992,03/01 Influenza, Split 02/15/2013 Influenza, Trivalent, IM [...] on file Legal Sex Female 11:32 AM BUMP GRADER OPERATOR Gender Identity Not on file Sexual [...] Sore throat EGFR Routine 07/11/2024 10:48 AM BUMP GRADER OPERATOR Recurrent fever DIFFERENTIAL AUTO Routine 07/11/2024 10: 48 AM BUMP GRADER OPERATOR Recurrent fever CBC WITH AUTO DIFFERENTIAL Routine 07/11/2024 10:48 AM BUMP GRADER OPERATOR Recurrent fever MONONUCLEOSIS SCREEN Routine 07/11/2024 10:48 AM BUMP GRADER OPERATOR Recurrent fever COMPREHENSIVE METABOLIC PANEL Routine 07/11/2024 10:48 AM BUMP GRADER OPERATOR Recurrent fever from Last 3 Months Results * POCT rapid strep A (09/03/2024 11:20 AM CDT) Pathologist [facility] Rapid Strep A, POC Negative Negative Swab 09/03/2024 11:2 0 AM CDT Olga Hebert NP POINT OF CARE TEST ORDERAB LES Final Result * Throat culture Throat (09/03/2024 8:00 AM CDT) Pathologist [facility] Report Final Report: No growth of pathogens. Comment:Testing performed by : [facility], [address] [place]., [address] Throat 09/03/2024 8:00 AM CDT 09/03/2024 4:17 PM CDT Narrative SHARONDA BOSS - 09/04/2024 11:40 AM CDT Testing performed by [facility] ([phone]). lOga Hebert NP LAB MICROBIOLOGY - GENERAL ORDERABLES Final Result SHARONDA [address] Department [place] [address] * eGFR (07/11/2024 10:48 AM BUMP GRADER OPERATOR) Pathologist [facility] eGFR >90 >=60 mL/min/1. 73 m2 [...] reviewed 2021. Blood 07/11/2024 10:4 8 AM BUMP GRADER OPERATOR 07/11/2024 4:28 PM BUMP GRADER OPERATOR us Kehinde Trejo MD LAB BLOOD ORDERABLES Queenie l Result [facility] [address] Department [place] [address] * (ABNORMAL) Differential, auto (07/11/2024 10:48 AM BUMP GRADER OPERATOR) Neutrophil abs 8.2(H) 1.5 - 6.5 K/cumm Imm gran abs 0.1 0.0 - 0.1 K/cumm [facility] Lymphocyte abs 1.4 0.8 - 3.3 K/cumm [facility] Monocyte abs 0.8 0.2 - 0.8 K/cumm [facility] Eosinophil abs 0.1 0.0 - 0.5 K/cumm [facility] Basophil abs 0.0 0.0 - 0.1 K/cumm [facility] Neutrophil pct 77.0 % [facility] Comment: Interpretive Data Percent cell count reference ranges are not reported, since discordance with absolute values may lead to misinterpretation of CBC data. Current Interpretive Data was last revised on 2017. Imm gran pct 0.8 % [facility] Comment: Interpretive Data Percent cell count reference ranges are not reported, since discordance with absolute values may lead to misinterpretation of CBC data. Current Interpretive Data was last revised on 2017. Lymphocyte pct 13.2 % [facility] Comment: Interpretive Data Percent cell count reference ranges are not reported, since discordance with absolute values may lead to misinterpretation of CBC data. Current Interpretive Data was last revised on 2017. Monocyte pct 7.9 % [facility] Comment: Interpretive Data Percent cell count reference ranges are not reported, since discordance with absolute values may lead to misinterpretation of CBC data. Current Interpretive Data was last revised on 2017. Eosinophil pct 0.8 % [facility] Comment: Interpretive Data Percent cell count reference ranges are not reported, since discordance with absolute values may lead to misinterpretation of CBC data. Current Interpretive Data was last revised on 2017. Basophil pct 0.3 % [facility] Comment: Interpretive Data Percent cell count reference ranges are not reported, since discordance with absolute values may lead to misinterpretation of CBC data. Current Interpretive Data was last revised on 2017. Blood 07/11/2024 10:4 8 AM BUMP GRADER OPERATOR 07/11/2024 3:36 PM BUMP GRADER OPERATOR Kehinde Trejo MD LAB BLOOD ORDERABLES Queenie l Result Performing Organization Address City/[facility]/ZIP Co de Phone Number [facility] [address] [address] Department [place] [address] * (ABNORMAL) CBC with auto differential (07/11/2024 10:48 AM BUMP GRADER OPERATOR) WBC 10.6(H) 3.8 - 9.9 K/cumm Hgb 12.6 11.9 - 15.5 g/dL [facility] Hct 38.6 35.6 - 45.5 % [facility] Plt 333 150 - 400 K/cumm [facility] MPV 10.0 9.1 - 12.3 fL [facility] RBC 4.45 3.90 - 5.20 M/cumm [facility] MCV 86.7 81.3 - 96.4 fL [facility] MCH 28.3 27.1 - 33.3 pg [facility] MCHC 32.6 32.3 - 35.7 g/dL [facility] RDW CV 13.7 11.1 - 14.9 % [facility] RDW SD 43.1 35.7 - 48.1 fL [facility] NRBC abs 0.00 0.00 - 0.01 K/cumm [facility] Blood 07/11/2024 10:4 8 AM BUMP GRADER OPERATOR 07/11/2024 3:36 PM BUMP GRADER OPERATOR Kehinde Trejo MD LAB BLOOD ORDERABLES Queenie l Result SHARONDA BOSS [address] [place] [address] * Mononucleosis screen (07/11/2024 10:48 AM BUMP GRADER OPERATOR) Pathologist [facility] Wilkinson Screen Negative Negative Comment: Interpretive Data Heterophile [...] on 2022. Blood 07/11/2024 10:4 8 AM BUMP GRADER OPERATOR 07/11/2024 3:36 PM BUMP GRADER OPERATOR Kehinde Trejo MD LAB BLOOD ORDERABLES Queenie l Result SHARONDA BOSS [address] [place] [address] * Comprehensive metabolic panel (07/11/2024 10:48 AM BUMP GRADER OPERATOR) Pathologist [facility] Sodium 137 135 - 145 mmol/L Potassium, pl 4.4 3.3 - 4.9 mmol/L [facility] Chloride 98 97 - 110 mmol/L [facility] CO2 27 22 - 32 mmol/L [facility] Anion gap 12 2 - 15 mmol/L [facility] BUN 6 6 - 25 mg/dL [facility] Creatinine 0.63 0.60 - 1.10 mg/dL [facility] Glucose 100 70 - 199 mg/dL [facility] Comment: Interpretive Data Fasting glucose >/= 126 [...] CERNER CH Blood 07/11/2024 10:4 8 AM BUMP GRADER OPERATOR 07/11/2024 3:36 PM BUMP GRADER OPERATOR Kehinde Trejo MD LAB BLOOD ORDERABLES Queenie pruett Result SHARONDA [address] [place] [address] from Last 3 Months Insurance [employer] [place] [employer] [place] Care Teams Hydraulic Lift Operator Relationship Specialty Start Date End Date Kehinde Trejo MD [address] [place] [address] PCP - General Family Medicine 04/23/21 Rickey Frias MD [address] [place] [address] Family Medicine 08/08/20
[2024-10-06 12:44] LABS: Beta HCG Quantitative 2.61 mIU/ML
== END 2024-10-06 10:38 | disposition home or self-care (01) ==
LOC: ANHGOSHLAB 10:38
PROVIDERS: PCP Obstetrics & Gynecology; Visit Provider Obstetrics & Gynecology
DX: O20.0 Threatened abortion (principal); Z3A.00 Weeks of gestation of pregnancy not specified
CPT/HCPCS: 36415; 84702

== ENCOUNTER 2024-12-20 13:00 | Outpatient (CLI) | payer BC, SELFPAY ==
--- OUTSIDE RECORDS SUMMARY | 2024-12-20 13:09 | XMS_ITS | Clinical Summary ---
Author Organization [facility] Address [address] [place] [address] Care Team Providers Care Lactation Specialist Name Role Phone Lanie De León MD Unavailable [phone] Source Comments [facility],non-owned Affiliates and Associated Physician Practices is amultiple site organization consisting of ambulatory clinics and hospital sitesin [place], [place], [place] and [place]. This disclosure is being madepursuant to the Care Everywhere program and may not contain all information available regarding this patient. Last updated 18.[facility] [employer] Allergies No known active allergies Medications * [...] on file Legal Sex Female 1:55 PM HONING MACHINE OPERATOR SEMIAUTOMATIC Gender Identity Not on file Sexual Orientation Not on file Last Filed Vital Signs Vital Sign Reading Time Taken Comments Blood Pressure 110/62 05/23/2018 12:00 PM HONING MACHINE OPERATOR SEMIAUTOMATIC Pulse 61 05/23/2018 12:00 PM HONING MACHINE OPERATOR SEMIAUTOMATIC Temperature 37 C (98.6 F) 05/23/2018 12:00 PM HONING MACHINE OPERATOR SEMIAUTOMATIC Respiratory Rate - - Oxygen Saturation 98% 05/23/2018 12:00 PM HONING MACHINE OPERATOR SEMIAUTOMATIC Inhaled Oxygen Concentration - - Weight 59 kg (130 lb) 05/23/2018 12:00 PM HONING MACHINE OPERATOR SEMIAUTOMATIC Height 157.5 cm (5' 2) 05/23/2018 12:00 PM HONING MACHINE OPERATOR SEMIAUTOMATIC Body Mass Index 23.78 05/23/2018 12:00 PM HONING MACHINE OPERATOR SEMIAUTOMATIC Plan of Treatment Health Maintenance Due Date Last Done Comments HIV SCREENING 01/01/2007 HEPATITIS C SCREENING 12/28/2009 DTAP/TDAP/TD VACCINES (1 - Tdap) 01/01/2011 HEPATITIS B VACCINE (1 of 3 - 19+ 3-dose series) 01/01/2011 HPV VACCINE (1 - 3-dose SCDM series) 01/01/2019 COVID-19 VACCINE (1 - 2023-2 5 season) 2024 DEPRESSION SCREENING 05/24/2024 INFLUENZA VACCINE (#1) 2025 ZOSTER VACCINE (1 of 2) 01/01/2042 [...] patient's age to complete this topic Insurance JAYSON CIGNA CIGNA Care Teams Lactation Specialist Relationship Specialty Start [place] [id number] [place] [id number] Construction Electrician Obstetrics and Gynecology 08/09/12
--- OUTSIDE RECORDS SUMMARY | 2024-12-20 13:09 | XMS_ITS | Clinical Summary ---
Author Organization [facility] Address [address] [place] [address] Care Team Providers Care Siding Coreboard Inspector Name Role Phone Kristin Amin MD Primary Care Provider [phone] , Generic Conversion Unavailable Jayden Murcia MD Unavailable [phone] Allergies No known active allergies Medications [...] 10:16 AM CDT Height 160 cm (5' 3) 12/17/2016 10:16 AM CDT Body Mass Index [...] 3 - 19+ 3-dose series) 01/01/2011 HPV Vaccines (1 - 3-dose SCD M series) 01/01/2019 Cervical Cancer Screening Pa p with HPV Testing (Age 30 to 64) Every 5 Years 01/01/2022 Cervical Cancer Screening with HPV 01/01/2022 COVID-19 Vaccine (2023-2 5 season) 2024 Meningococcal B Vaccine Aged Out No l [...] age to complete this topic Care Teams Siding Coreboard Inspector Relationship Specialty [place] [address] [place] [address] PCP - General FAMILY PRACTICE 12/07/16 , Cherrie Stoll MD 12/07/16 Jayden Napoles MD [address] [place] [address] [facility] Representative CARDIOVASCULAR DISEASE 12/07/16
--- OUTSIDE RECORDS SUMMARY | 2024-12-20 13:09 | XMS_ITS | Referral Summary ---
Author Organization [facility] 163 [facility] Address [address] [place] [address] Care Team Providers Care Supervisor Motorcycle Repair Shop Name Role Phone Rickey Frias MD Unavailable [phone] Kehinde Trejo MD Primary Care Provider [phone] Allergies No known active allergies Medications cefdinir (OMNICEF) 300 mg capsule Take 1 capsule (300 mg total) by mouth 2 (two) times a day 20 capsule Active Additional Information Patient not taking.Reported on 09/03/2024 Active Problems Problem Noted Date Diagnosed Date Recurrent fever 07/23/2024 Assessment & Plan (07/23/2024 10:04 AM NETWORK OPERATIONS CENTER ENGINEER): Terat imepricially with cefidinri and medrol. Reivewed [...] healthier, we can set up appointment with fine arts packer/perianesthesia rn. 3. Have an active lifestyle, strive for [...] on file Legal Sex Female 11:32 AM NETWORK OPERATIONS CENTER ENGINEER Gender Identity Not on file Sexual [...] 11:08 AM CDT Height 157.5 cm (5' 2.01) 09/03/2024 11:08 AM C DT Body Mass Index 24.76 09/03/2024 11:08 AM CDT Plan of Treatment Not on file Insurance MUNA CIG [employer] [place] Care Teams Supervisor Motorcycle Repair Shop Relationship Specialty Start Date End Date Kehinde Trejo MD [address] [place] [address] PCP - General Family Medicine 04/23/21 Rickey Frias MD [address] [place] [address] Family Medicine 08/08/20
--- OUTSIDE RECORDS SUMMARY | 2024-12-20 13:09 | XMS_ITS | Clinical Summary ---
Author Organization [facility] 163 [facility] Address [address] [place] [address] Care Team Providers Care Patients Transporter Name Role Phone Rickey Frias MD Unavailable [phone] Kehinde Trejo MD Primary Care Provider [phone] Allergies No known active allergies Medications cefdinir (OMNICEF) 300 mg capsule Take 1 capsule (300 mg total) by mouth 2 (two) times a day 20 capsule Active Additional Information Patient not taking.Reported on 09/03/2024 Active Problems Problem Noted Date Diagnosed Date Recurrent fever 07/23/2024 Assessment & Plan (07/23/2024 10:04 AM REGIONAL MARKETING MANAGER): Terat imepricially with cefidinri and medrol. [...] healthier, we can set up appointment with medical/surgery registered nurse/alarm mechanism adjuster. 3. Have an active lifestyle, strive for [...] on file Legal Sex Female 11:32 AM REGIONAL MARKETING MANAGER Gender Identity Not on file Sexual [...] series) 01/01/2005 Regular Well Visit/Exam 18-64 01/01/2010 HPV Vaccines (1 - 3-dose SCDM series) 01/01/2019 Influenza Vaccine (#1) 2025 , 02/05/2020, 04/23/2014, Additional history exists Depression Screening 07/11/2025 07/11/2024, 03/20/20 21 DTaP/Tdap/Td Vaccine (8 - Td or Tdap) 08/13/2029 08/14/2019, 01/08/2014, 10/28/2005, Additional history exists Hepatitis B Screening Completed 08/12/2001 , 06/10/2001, 05/06/2001 Pneumococcal vaccine <65 Aged Out No longer eligible based on patient's age to complete this topic Insurance [employer] [place] Care Teams Patients Transporter Relationship Specialty Start Date End Date Ke[place] [address] PCP - General Family Medicine 04/23/21 Rickey Frias MD [address] [place] [address] Family Medicine 08/08/20
[2024-12-20 20:30] LABS: Beta HCG Quantitative 1058.20 mIU/ML
== END 2024-12-20 13:01 | disposition home or self-care (01) ==
LOC: ANHGOSHLAB 13:00
PROVIDERS: Visit Provider Obstetrics & Gynecology
DX: O09.299 Supervision of pregnancy with other poor reproductive or obstetric history, unspecified trimester (principal); Z3A.00 Weeks of gestation of pregnancy not specified
CPT/HCPCS: 36415; 84144; 84702

== ENCOUNTER 2024-12-22 13:58 | Outpatient (CLI) | payer BC, SELFPAY ==
--- OUTSIDE RECORDS SUMMARY | 2024-12-22 14:01 | XMS_ITS | Clinical Summary ---
Author Organization [facility] [address] [facility] Address [address] [place] [address] Care Team Providers Care Molding Technician Name Role Phone Rickey Frias MD Unavailable [phone] Kehinde Trejo MD Primary Care Provider [phone] Allergies No known active allergies Medications cefdinir (OMNICEF) 300 mg capsule Take 1 capsule (300 mg total) by mouth 2 (two) times a day 20 capsule Active Additional Information Patient not taking.Reported on 09/03/2024 Active Problems Problem Noted Date Diagnosed Date Recurrent fever 07/23/2024 Assessment & Plan (07/23/2024 10:04 AM LAB TECH): Terat imepricially with cefidinri and medrol. Reivewed [...] healthier, we can set up appointment with pharmacy director/geotechnical department manager. 3. Have an active lifestyle, strive [...] on file Legal Sex Female 11:32 AM LAB TECH Gender Identity Not on file Sexual Orientation [...] patient's age to complete this topic Insurance [employer] [place] [employer] [place] Care Teams Molding Technician Relationship Specialty Start Date End Date [place] [address] PCP - General Family Medicine 04/23/21 Rickey Frias MD [address] [place] [address] Family Medicine 08/08/20
--- OUTSIDE RECORDS SUMMARY | 2024-12-22 14:01 | XMS_ITS | Referral Summary ---
Author Organization [facility] 163 [facility] Address [address] [place] [address] Care Team Providers Care Rubber Goods Tester Name Role Phone Rickey Frias MD Unavailable [phone] Kehinde Trejo MD Primary Care Provider [phone] Allergies No known active allergies Medications cefdinir (OMNICEF) 300 mg capsule Take 1 capsule (300 mg total) by mouth 2 (two) times a day 20 capsule Active Additional Information Patient not taking.Reported on 09/03/2024 Active Problems Problem Noted Date Diagnosed Date Recurrent fever 07/23/2024 Assessment & Plan (07/23/2024 10:04 AM TABLET MAKING MACHINE OPERATOR HELPER): Terat imepricially with cefidinri and medrol. Reivewed [...] healthier, we can set up appointment with veneer sander/furnace worker. 3. Have an active lifestyle, strive for [...] on file Legal Sex Female 11:32 AM TABLET MAKING MACHINE OPERATOR HELPER Gender Identity Not on file Sexual Orientation [...] Treatment Not on file Insurance MUNA CIG [employer] [place] Care Teams Rubber Goods Tester Relationship Specialty Start Date End Date Kehinde Trejo MD [address] [place] [address] PCP - General Family Medicine 04/23/21 Rickey Frias MD [address] [place] [address] Family Medicine 08/08/20
--- OUTSIDE RECORDS SUMMARY | 2024-12-22 14:01 | XMS_ITS | Clinical Summary ---
Author Organization [facility] Address [address] [facility] [place] [address] Care Team Providers Care Cardiac Monitor Name Role Phone Lanie De León MD Unavailable [phone] Source Comments [facility],non-owned Affiliates and Associated Physician Practices is amultiple site organization consisting of ambulatory clinics and hospital sitesin [place], [place], [place] and [place]. This disclosure is being madepursuant to the Care Everywhere program and may not contain all information available regarding this patient. Last updated 18.[facility] [employer] Allergies No known active allergies Medications * [...] on file Legal Sex Female 1:55 PM MINES SAFETY ENGINEER Gender Identity Not on file Sexual Orientation Not on file Last Filed Vital Signs Vital Sign Reading Time Taken Comments Blood Pressure 110/62 05/23/2018 12:00 PM MINES SAFETY ENGINEER Pulse 61 05/23/2018 12:00 PM MINES SAFETY ENGINEER Temperature 37 C (98.6 F) 05/23/2018 12:00 PM MINES SAFETY ENGINEER Respiratory Rate - - Oxygen Saturation 98% 05/23/2018 12:00 PM MINES SAFETY ENGINEER Inhaled Oxygen Concentration - - Weight 59 kg (130 lb) 05/23/2018 12:00 PM MINES SAFETY ENGINEER Height 157.5 cm (5' 2) 05/23/2018 12:00 PM MINES SAFETY ENGINEER Body Mass Index 23.78 05/23/2018 12:00 PM MINES SAFETY ENGINEER Plan of Treatment Health Maintenance Due [...] topic Insurance JAYSON CIGNA CIGNA Care Teams Cardiac Monitor Relationship Specialty Start [place] [address] [address] [place] [address] Fixed Wing Aircraft Crew Chief Obstetrics and Gynecology 08/09/12
--- OUTSIDE RECORDS SUMMARY | 2024-12-22 14:01 | XMS_ITS | Clinical Summary ---
Author Organization [facility] Address [address] [place] [address] Care Team Providers Care Rn Review Name Role Phone Kristin Amin MD Primary Care Provider [phone] , Generic Conversion Unavailable Jayden Murcia MD Unavailable [phone] Allergies No known active allergies Medications [...] age to complete this topic Care Teams Rn Review Relationship Specialty [place] [address] [place] [address] PCP - General FAMILY PRACTICE 12/07/16 , Cherrie Stoll MD 12/07/16 Jayden Napoles MD [address] [place] [address] [place] Weigher Operator CARDIOVASCULAR DISEASE 12/07/16
[2024-12-22 18:23] LABS: Beta HCG Quantitative 2064.30 mIU/ML
== END 2024-12-22 13:59 | disposition home or self-care (01) ==
LOC: ANHGOSHLAB 13:59
PROVIDERS: Visit Provider Obstetrics & Gynecology
DX: O09.299 Supervision of pregnancy with other poor reproductive or obstetric history, unspecified trimester (principal); Z3A.00 Weeks of gestation of pregnancy not specified
CPT/HCPCS: 36415; 84144; 84702

== ENCOUNTER 2025-01-11 14:03 | Outpatient (CLI) | payer BC, SELFPAY ==
--- NOTE | ~2025-01-11 | US_ITS ---
EXAMINATION: US OB <=14 wk fetus w TV DATE: 01/11/2025 14:44 INDICATION: Gestational dating. Spotting. Patient had previous outside ultrasound which per report corresponded to 6 week gestation with cardiac activity. TECHNIQUE: Real-time transabdominal and transvaginal obstetric ultrasound. FINDINGS: No prior studies for comparison. The uterus measures 9.4 x 6.5 x 4.8 cm. There are uterine fibroids, largest measuring 2 cm at the fundus. There is an intrauterine gestational sac, with pole identified. The crown rump length measures 0.38 cm, which correlates with a estimated gestational age of 6 weeks 0 days. No heart motions detected. There is corpus luteal cyst of the right ovary measuring 2.2 cm. IMPRESSION: 1. Intrauterine gestation corresponding to 6 week 0 day gestation. No heart motions detected. Per clinical history outside examination demonstrated cardiac activity. Findings are suspicious for demise. Recommend correlation with follow-up serial quantitative beta-hCG levels and ultrasound as clinically warranted. 2: Corpus luteal cyst of the right ovary measuring 2.2 cm. 3: Fibroid uterus with largest fibroid at the fundus measuring 2 cm. Reviewed, dictated and finalized at location O. IMPRESSION: 1. Intrauterine gestation corresponding to 6 week 0 day gestation. No hea rt motions detected. Per clinical history outside examination demonstrated card iac activity. Findings are suspicious for demise. Recommend correlation w ith follow-up serial quantitative beta-hCG levels and ultrasound as clinically warranted. 2: Corpus luteal cyst of the right ovary measuring 2.2 cm. 3: Fibroid uterus with largest fibroid at the fundus measuring 2 cm.
== END 2025-01-11 14:04 | disposition home or self-care (01) ==
LOC: GOSHIMG 14:04
PROVIDERS: Visit Provider Obstetrics & Gynecology
DX: Z34.90 Encounter for supervision of normal pregnancy, unspecified, unspecified trimester (principal); Z3A.00 Weeks of gestation of pregnancy not specified; D25.9 Leiomyoma of uterus, unspecified; N83.11 Corpus luteum cyst of right ovary
CPT/HCPCS: 76801; 76817

== ENCOUNTER 2025-01-17 11:19 | Outpatient (CLI) | payer BC, SELFPAY ==
--- OUTSIDE RECORDS SUMMARY | 2025-01-17 11:41 | XMS_ITS | Clinical Summary ---
Author Organization [facility] [place] [address] [facility] lt Address [address] [place] [address] Care Team Providers Care Digital Marketing Executive Name Role Phone Rickey Frias MD Unavailable [phone] Kehinde Trejo MD Primary Care Provider [phone] Ryan Ortega MD Unavailable [phone] Allergies No known active allergies Medications cefdinir (OMNICEF) 300 mg capsule Take 1 capsule (300 mg total) by mouth 2 (two) times a day 20 capsule Active Additional Information Patient not taking.Reported on 09/03/2024 Active Problems Problem Noted Date Diagnosed Date Recurrent fever 07/23/2024 Assessment & Plan (07/23/2024 10:04 AM BOARDER MACHINE): Terat imepricially with cefidinri and medrol. Reivewed [...] healthier, we can set up appointment with easement man/metal reed tuner. 3. Have an active lifestyle, strive for [...] Encounters Date Type Department Care Team Description 01/01/2025 9:32 AM CDT - 01/01/2025 11:59 PM CDT Hospital Encounter [place] [id number] with inconclusive viability, single or unspecified fetus Discharge Disposition: Discharge to home or self care from Last 3 Months Immunizations Immunization Administration Dates Next Due DTaP 07/25/1996, 4,1992,05/03,1992 Hep B Vaccine 08/12/2001,06/10/2001,05/06/2001 Hib (HbOC) 04/04/1993, 3,1992,03/01 IPV 07/25/1996,199 4,1992,03/01 Influenza, Split 02/15/2013 [...] on file Legal Sex Female 11:32 AM BOARDER MACHINE Gender Identity Not on file Sexual Orientation [...] Procedure Name Priority Date/Time Associated Diagnosis Comments US OB UNDER 14 WEEKS W ENDOVAGINAL Schedule Routine, Read Routine (OP Routine) 01/01/2025 4:42 PM CDT with inconclusive viability, single or unspecified fetus from Last 3 Months Results * US OB Under 14 Weeks W Endovaginal (01/01/2025 4:42 PM CDT) Anatomical Region Laterality Modality Abdomen N/A Ultrasound 01/03/2025 9:16 AM CDT Impressions 01/03/2025 9:16 AM CDT Single live intrauterine gestation of 6 weeks and 0 days with heart rate of 106 BPM. Intrauterine 2.1 cm myoma. Right ovarian 2.5 cm cyst. Electronically signed by: Yesenia Bradford M.D. Narrative 01/03/2025 9:16 AM CDT EXAM: OB ULTRASOUND LESS THAN 14 WEEKS: DATE: 01/01/2025 10:00 AM CLINICAL HISTORY:O36.80X0 TECHNIQUE: Transabdominal and transvaginal ultrasonographic images of the pelvis were obtained by the technologist and submitted for review. COMPARISON: No prior study is available for comparison. FINDINGS: The uterus is 10.9 x 3.6 x 6.8 cm. A 1.9 x 1.6 x 2.1 hypoechoic lesion in the anterior uterus is noted. An intrauterine gestational sac is seen measuring 12 mm corresponding to 5 weeks 3 days. There is a yolk sac and pole with heart rate of 106 BPM. [place]-rump length 3.5 mm corresponds to 6 weeks and 0 days +/- 4 days with EDC 08/27/2025. The right ovary is 4.0 x 3.2 x 2.6 cm with a 2.5 x 2.7 x 1.7 cm cyst. The left ovary is 2.0 x 2.8 x 1.9 cm and unremarkable Bilateral ovarian blood flow is documented with color flow and arterial and venous waveforms noted with spectral Doppler. There is no free pelvic fluid. Procedure Note Yesenia Bradford MD - 01/03/2025 EXAM: OB ULTRASOUND LESS THAN 14 WEEKS: DATE: 01/01/2025 10:00 AM CLINICAL HISTORY:O36.80X0 TECHNIQUE: Transabdominal and transvaginal ultrasonographic images of the pelvis were obtained by the technologist and submitted for review. COMPARISON: No prior study is available for comparison. FINDINGS: The uterus is 10.9 x 3.6 x 6.8 cm. A 1.9 x 1.6 x 2.1 hypoechoic lesion in the anterior uterus is noted. An intrauterine gestational sac is seen measuring 12 mm corresponding to 5 weeks 3 days. There is a yolk sac and pole with heart rate of 106 BPM. [place]-rump length 3.5 mm corresponds to 6 weeks and 0 days +/- 4 days with EDC 08/27/2025. The right ovary is 4.0 x 3.2 x 2.6 cm with a 2.5 x 2.7 x 1.7 cm cyst. The left ovary is 2.0 x 2.8 x 1.9 cm and unremarkable Bilateral ovarian blood flow is documented with color flow and arterial and venous waveforms noted with spectral Doppler. There is no free pelvic fluid. IMPRESSION: Single live intrauterine gestation of 6 weeks and 0 days with heart rate of 106 BPM. Intrauterine 2.1 cm myoma. Right ovarian 2.5 cm cyst. Electronically signed by: Yesenia Bradford M.D. us Ryan Ortega MD IMG OB US PROCEDURES Final R esult from Last 3 Months Insurance [facility] [employer] [facility] Care Teams Digital Marketing Executive Relationship Specialty Start Date End Date Kehinde Trejo MD [address] [place] [address] PCP - General Family Medicine 04/23/21 Rickey Frias MD [address] [place] [address] Family Medicine 08/08/20 Ryan Ortega MD [address] [address] Referring Physician Obstetrics and Gynecology 01/16/25
--- OUTSIDE RECORDS SUMMARY | 2025-01-17 11:41 | XMS_ITS | Clinical Summary ---
Author Organization [facility] Address [address] [place] [address] Care Team Providers Care Bank Worker Name Role Phone Lanie De León MD Unavailable [phone] Source Comments [facility],non-owned Affiliates and Associated Physician Practices is amultiple site organization consisting of ambulatory clinics and hospital sitesin [place], [place], [place] and [place]. This disclosure is being madepursuant to the Care Everywhere program and may not contain all information available regarding this patient. Last updated 18.[facility] [employer]ia Allergies No known active allergies Medications * [...] on file Legal Sex Female 1:55 PM MARKETING RECRUITER Gender Identity Not on file Sexual Orientation Not on file Last Filed Vital Signs Vital Sign Reading Time Taken Comments Blood Pressure 110/62 05/23/2018 12:00 PM MARKETING RECRUITER Pulse 61 05/23/2018 12:00 PM MARKETING RECRUITER Temperature 37 C (98.6 F) 05/23/2018 12:00 PM MARKETING RECRUITER Respiratory Rate - - Oxygen Saturation 98% 05/23/2018 12:00 PM MARKETING RECRUITER Inhaled Oxygen Concentration - - Weight 59 kg (130 lb) 05/23/2018 12:00 PM MARKETING RECRUITER Height 157.5 cm (5' 2) 05/23/2018 12:00 PM MARKETING RECRUITER Body Mass Index 23.78 05/23/2018 12:00 PM MARKETING RECRUITER Plan of Treatment Health Maintenance Due Date [...] topic Insurance [employer] Care Teams Bank Worker Relationship Specialty Start [place] [id number] [place] [id number] J2Ee Engineer Obstetrics and Gynecology 08/09/12
[2025-01-17 16:09] LABS: Beta HCG Quantitative 1465.00 mIU/ML
== END 2025-01-17 11:20 | disposition home or self-care (01) ==
LOC: ANHGOSHLAB 11:20
PROVIDERS: Visit Provider Obstetrics & Gynecology
DX: O20.9 Hemorrhage in early pregnancy, unspecified (principal); Z3A.00 Weeks of gestation of pregnancy not specified
CPT/HCPCS: 36415; 84702

== ENCOUNTER 2025-02-07 15:29 | Outpatient (CLI) | payer BC, SELFPAY ==
[2025-02-07 16:11] LABS: Beta HCG Quantitative 5.55 mIU/ML
--- OUTSIDE RECORDS SUMMARY | 2025-02-07 16:13 | XMS_ITS | Clinical Summary ---
Author Organization [facility] Address [address] [facility] [facility] [place] [address] Care Team Providers Care Plane Tender Name Role Phone Lanie De León MD Unavailable [phone] Source Comments [facility],non-owned Affiliates and Associated Physician Practices is amultiple site organization consisting of ambulatory clinics and hospital sitesin [place], [place], [place] and [place]. This disclosure is being madepursuant to the Care Everywhere program and may not contain all information available regarding this patient. Last updated 18.[facility] Ra[employer]5 Allergies No known active allergies Medications * [...] on file Legal Sex Female 1:55 PM CHASSIS WIRER Gender Identity Not on file Sexual Orientation Not on file Last Filed Vital Signs Vital Sign Reading Time Taken Comments Blood Pressure 110/62 05/23/2018 12:00 PM CHASSIS WIRER Pulse 61 05/23/2018 12:00 PM CHASSIS WIRER Temperature 37 C (98.6 F) 05/23/2018 12:00 PM CHASSIS WIRER Respiratory Rate - - Oxygen Saturation 98% 05/23/2018 12:00 PM CHASSIS WIRER Inhaled Oxygen Concentration - - Weight 59 kg (130 lb) 05/23/2018 12:00 PM CHASSIS WIRER Height 157.5 cm (5' 2) 05/23/2018 12:00 PM CHASSIS WIRER Body Mass Index 23.78 05/23/2018 12:00 PM CHASSIS WIRER Plan of Treatment Health Maintenance Due Date Last Done Comments HIV SCREENING 01/01/2007 HEPATITIS C SCREENING 12/28/2009 DTAP/TDAP/TD VACCINES (1 - Tdap) 01/01/2011 HEPATITIS B VACCINE (1 of 3 - 19+ 3-dose series) 01/01/2011 HPV VACCINE (1 - 3-dose SCDM series) 01/01/2019 DEPRESSION SCREENING 05/24/2024 COVID-19 VACCINE (1 - 2023-2 5 season) 2025 INFLUENZA VACCINE (#1) 2025 ZOSTER VACCINE (1 [...] topic Insurance [employer] Care Teams Plane Tender Relationship Specialty Start [place] Lanie De [place]ón [place] [id number] [place] [id number] Log Clerk Obstetrics and Gynecology 08/09/12
--- OUTSIDE RECORDS SUMMARY | 2025-02-07 16:13 | XMS_ITS | Clinical Summary ---
Author Organization [facility] [place] [address] [facility] lt Address [address] [place] [address] Care Team Providers Care Digital Marketing Executive Name Role Phone Rickey Frias MD Unavailable [phone] Kehinde Trejo MD Primary Care Provider [phone] Ryan Ortega MD Unavailable [phone] Allergies No known active allergies Medications cefdinir (OMNICEF) 300 mg capsule Take 1 capsule (300 mg total) by mouth 2 (two) times a day 20 capsule Active Additional Information Patient not taking.Reported on 09/03/2024 Active Problems Problem Noted Date Diagnosed Date Recurrent fever 07/23/2024 Assessment & Plan (07/23/2024 10:04 AM GAS METER READER): Terat imepricially with cefidinri and medrol. Reivewed [...] healthier, we can set up appointment with running rigger/data operations director. 3. Have an active lifestyle, strive for [...] Encounters Date Type Department Care Team Description 01/17/2025 3:10 PM CDT [facility] Reproductive Endocrinology [address] [place] [address] Lindsay Mercado MD Encounter for fertility testing (Primary Dx) 01/01/2025 9:32 AM CDT - 01/01/2025 11:59 PM CDT Hospital Encounter [facility] [address] [place] [address] with inconclusive viability, single or unspecified fetus [...] on file Legal Sex Female 11:32 AM GAS METER READER Gender Identity Not on file Sexual Orientation Not on file Obstetrics History Para Term AB IAB SAB Ectopic Multiple Livin g Live Births 4 2 2 2 2 Date Outcome GA Total Labor Labor/2nd/3rd Weight Sex Type Anes PTL Nimo A1 A5 Name Clin 2019 Term 2022 Term 08/2024 SAB 11/2024 SAB Last Filed Vital Signs Vital Sign Reading Time Taken Comments Blood Pressure 117/76 09/03/2024 11:08 AM CDT Pulse 71 09/03/2024 11:08 AM CDT Temperature 37.6 C (99.7 F) 09/03/2024 11:08 AM CDT Respiratory Rate 18 09/03/2024 11:08 AM CDT Oxygen Saturation 99% 09/03/2024 11:08 AM CDT Inhaled Oxygen Concentration - - Weight 68 kg (150 lb) 01/17/2025 2:53 PM CDT Height 157.5 cm (5' 2) 01/17/2025 2:53 PM CDT Body Mass Index 27.44 01/17/2025 2:53 PM CDT Plan of Treatment Health Maintenance Due [...] pole with heart rate of 106 BPM. [place]-rump length 3.5 mm corresponds to 6 weeks [...] pole with heart rate of 106 BPM. [place]-rump length 3.5 mm corresponds to 6 weeks [...] R esult from Last 3 Months Insurance [facility] [place] Care Teams Digital Marketing Executive Relationship Specialty Start Date End Date Kehinde Trejo MD [address] [place] [address] PCP - General Family Medicine 04/23/21 Rickey Frias MD [address] [place] [address] Family Medicine 08/08/20 Ryan Ortega MD [address] [place] [address] Referring Physician Obstetrics and Gynecology 01/16/25
--- OUTSIDE RECORDS SUMMARY | 2025-02-07 16:13 | XMS_ITS | Clinical Summary ---
Author Organization [facility] Address [address] [place] [address] Care Team Providers Care Metal Fabricating Inspector Name Role Phone Kristin Amin MD Primary Care Provider [phone] , Generic Conversion Unavailable Jayden Murcia MD Unavailable [phone] Allergies No known active allergies Medications [...] HPV 01/01/2022 COVID-19 Vaccine (2023-2 5 season) 2025 Meningococcal B Vaccine Aged Out No l [...] age to complete this topic Care Teams Metal Fabricating Inspector Relationship Specialty [place] [address] [place] [address] PCP - General FAMILY PRACTICE 12/07/16 , Cherrie Stoll MD 12/07/16 Jayden Napoles MD [address] [place] [address] [place] Record Clerk CARDIOVASCULAR DISEASE 12/07/16
== END 2025-02-07 15:30 | disposition home or self-care (01) ==
LOC: ANHLAB 15:29
PROVIDERS: Visit Provider Obstetrics & Gynecology
DX: O03.9 Complete or unspecified spontaneous abortion without complication (principal)
CPT/HCPCS: 36415; 84702